=== PATIENT | male | born 1955 | race Caucasian/White ===

== ENCOUNTER 2020-04-05 09:54 | Inpatient (IN) | payer MEDICARE, MEDICAID ==
[2020-04-05] MEDS ORDERED: 50% Dextrose in Water 50 ML Syringe IV PRN ×2 (12:44→12:45)
[2020-04-05] MEDS ORDERED: Glucagon,Human Recombinant 1 MG Vial IM PRN ×2 (12:44→12:45)
[2020-04-05] MEDS ORDERED: 50% Dextrose in Water 50 ML Syringe IVPUSH PRN (12:45)
[2020-04-05] MEDS ORDERED: Acetaminophen/oxyCODONE 325-5 MG Tab PO PRN (12:45)
[2020-04-05] MEDS ORDERED: Ondansetron 4 MG Tab.DIS PO PRN (12:52)
[2020-04-05] MEDS ORDERED: Docusate Sodium 100 MG Cap PO PRN (12:52)
[2020-04-05] MEDS ORDERED: Acetaminophen 325 MG Tab PO PRN (12:52)
--- NOTE | 2020-04-05 13:02 | PCM.HP ---
H&P History of Present Illness - General Date of Service: 04/05/20 Admit Problem/Dx: Admission Diagnosis/Problem Admission Diagnosis/Problem Weakness Source of Information: Patient, Other ([facility] Records from [facility]) - History of Present Illness Initial Comments - Free Text/Narative: 65-year-old gentleman with prolonged hospital course from [facility], prior to acute care admission the patient has been living independently. The patient originally presented with cardiogenic shock, septic shock. the patient had PEA and received cardiac resuscitation. during the hospital course the patient was treated with broad-spectrum antibiotics for sepsis Noted to have acute GI bleed due to rectal ulcers associated with acute blood loss anemia acute renal failure, hyperkalemia, hypernatremia was managed The patient was noted to have severe weakness and dysphasia. transferred to swing bed for further physical and occupational therapy for weakness. He denies chest pain, shortness of breath, nausea or vomiting. - Related Data Allergies/Adverse Reactions: Allergies Allergy/AdvReac Type Severity Reaction Status Date / Time Penicillins Allergy Itching Verified 04/05/20 10:30 Home Medications: Home Meds Aspirin 81 mg PO DAILY 04/05/20 [History] Furosemide [Lasix] 20 mg PO DAILY 04/05/20 [History] Gabapentin [Neurontin] 300 mg PO TID 04/05/20 [History] Insulin Aspart [NovoLOG] 15 units SQ TIDMEALS 04/05/20 [History] Insulin Detemir [Levemir] 60 units SQ BEDTIME 04/05/20 [History] Multivits,Th w-Fe,Other Min [Complete Multivitamin] 1 tab PO DAILY 04/05/20 [History] [place]-3 Fatty Acids/Fish Oil [Fish Oil 1,000 mg Capsule] 1,000 mg pe PO BID 04/05/20 [History] Omeprazole 20 mg PO DAILY 04/05/20 [History] atorvaSTATin [Lipitor] 20 mg PO BEDTIME 04/05/20 [History] lisinopriL [Lisinopril] 5 mg PO DAILY 04/05/20 [History] metFORMIN HCl [Metformin HCl] 1,000 mg PO BIDMEALS 04/05/20 [History] oxyCODONE HCl/Acetaminophen [Oxycodone-Acetaminophen 5-325] 1 tab PO Q6HR PRN 04/05/20 [History] oxyCODONE HCl/Acetaminophen [Oxycodone-Acetaminophen 5-325] 2 tab PO Q6HR PRN 04/05/20 [History] Past Medical History HEENT History: Reports: Cataract Cardiovascular History: Reports: Prior Cardiac Arrest Gastrointestinal History: Reports: GI Bleed Genitourinary History: Reports: Acute Renal Failure Musculoskeletal History: Reports: Arthritis Other Musculoskeletal History: arthritis in hands Neurological History: Reports: Head Trauma, Neuropathy, Diabetic Other Neuro History: Pt fell from cardiac arrest Endocrine/Metabolic History: Reports: Diabetes, Type II Hematologic History: Reports: Blood Transfusion(s) Dermatologic History: Reports: Other (See Below) Other Dermatologic History: discoloration of bilateral lower legs - Infectious Disease History Infectious Disease History: Reports: Chicken Pox, Influenza, Measles, Mumps, Shingles - Past Surgical History HEENT Surgical History: Reports: Cataract Surgery Other HEENT Surgeries/Procedures: Left eye surgery and cataract in right eye Cardiovascular Surgical History: Reports: None GI Surgical History: Reports: Colonoscopy, EGD, Hernia, Abdominal, Hernia Repair/Other Male Surgical History: Reports: None Musculoskeletal Surgical History: Reports: None Social & Family History - Family History Family Medical History: Noncontributory H&P Review of Systems - Review of Systems: Review Of Systems: See Below General: Denies: Fever, Chills Pulmonary: Denies: Shortness of Breath Cardiovascular: Denies: Chest Pain Gastrointestinal: Denies: Abdominal Pain Exam - Exam Exam: See Below - Vital Signs Weight: 288 lb 1.6 oz - Exam General: Alert, Oriented Neck: Supple Lungs: Clear to Auscultation, Normal Respiratory Effort Cardiovascular: Regular Rate, Regular Rhythm GI/Abdominal Exam: Normal Bowel Sounds, Soft, Non-Tender, Other (morbidly obese) Extremities: Pedal Edema (bilateral 1-2+) Neurological: Other (generalized weakness) Neuro Extensive - Mental Status: Alert, Oriented x3 Psychiatric: Alert, Normal Affect, Normal Mood - Patient Data Lab Results Last 24 hrs: Laboratory Results - last 24 hr 04/05/20 Range/Units 11:46 POC Glucose 88 (70-105) mg/dl - Problem List (1) GI bleed SNOMED Code(s): 19559544 ICD Code: K92.2 - GASTROINTESTINAL HEMORRHAGE, UNSPECIFIED Status: Acute Current Visit: Yes (2) Acute blood loss anemia SNOMED Code(s): 264524893 ICD Code: D62 - ACUTE POSTHEMORRHAGIC ANEMIA Status: Acute Current Visit: Yes (3) Weakness SNOMED Code(s): 61829366 ICD Code: R53.1 - WEAKNESS Status: Acute Current Visit: Yes (4) Diabetes SNOMED Code(s): 30197671 ICD Code: E11.9 - TYPE 2 DIABETES MELLITUS WITHOUT COMPLICATIONS Status: Acute Current Visit: Yes (5) Morbid obesity SNOMED Code(s): 921193564 ICD Code: E66.01 - MORBID (SEVERE) OBESITY DUE TO EXCESS CALORIES Status: Acute Current Visit: Yes Problem List Initiated/Reviewed/Updated: Yes Orders Last 24hrs: Active Orders 24 hr Category Date Time Status Patient Status [ADT] Routine ADT 04/05/20 12:53 Ordered Antiembolic Devices [RC] PER UNIT ROUTINE Care 04/05/20 12:55 Ordered Glucose [Blood Glucose Check, Bedside] [RC] QIDACANDBED Care 04/05/20 12:45 Ordered Influenza Vaccine Charge [RC] .DISCHARGE Care 04/05/20 11:23 Active Oxygen Therapy [RC] PRN Care 04/05/20 12:53 Ordered Up With Assistance [RC] ASDIRECTED Care 04/05/20 12:52 Ordered VTE/DVT Education [RC] PER UNIT ROUTINE Care 04/05/20 12:53 Ordered Vital Signs [RC] Q4H Care 04/05/20 12:53 Ordered OT Evaluation and Treatment [CONS] Routine Cons 04/05/20 12:52 Ordered PT Evaluation and Treatment [CONS] Routine Cons 04/05/20 12:52 Ordered 2 Gram Sodium Diet [DIET] Diet 04/05/20 Lunch Active International Dysphagia Diet [DIET] Diet 04/05/20 Lunch Ordered Acetaminophen [TylenoL] Med 04/05/20 12:52 Ordered 650 mg PO Q4H PRN Acetaminophen/oxyCODONE [Percocet 325-5 MG] Med 04/05/20 12:45 Ordered 1 tab PO Q6HR PRN Aspirin Med 04/06/20 09:00 Ordered 81 mg PO DAILY Dextrose 50% in Water Med 04/05/20 12:45 Ordered 25 ml IVPUSH Q1H PRN Dextrose 50% in Water Med 04/05/20 12:44 Ordered 50 ml IV ASDIRECTED PRN Dextrose 50% in Water Med 04/05/20 12:45 Ordered 50 ml IV ASDIRECTED PRN Docusate Sodium [Colace] Med 04/05/20 12:52 Ordered 100 mg PO BID PRN Furosemide [Lasix] Med 04/06/20 09:00 Ordered 20 mg PO DAILY Gabapentin [Neurontin] Med 04/05/20 14:00 Ordered 300 mg PO TID Glucagon,Human Recombinant [GlucaGen] Med 04/05/20 12:44 Ordered 1 mg IM ASDIRECTED PRN Glucagon,Human Recombinant [GlucaGen] Med 04/05/20 12:45 Ordered 1 mg IM ASDIRECTED PRN Insulin Glarg,Human.Rec.Analog [LantUS] Med 04/05/20 21:00 Ordered 60 unit SUBCUT BEDTIME Insulin Lispro [HumaLOG] Med 04/05/20 17:00 Ordered 15 unit SUBCUT TIDMEALS Insulin Lispro [HumaLOG] Med 04/05/20 16:00 Ordered See Protocol SUBCUT ACBED Multivits,Th w-Fe,Other Min [Complete Multivitamin] Med 04/06/20 09:00 Ordered 1 tab PO DAILY Omeprazole Med 04/06/20 09:00 Ordered 20 mg PO DAILY Ondansetron [Zofran ODT] Med 04/05/20 12:52 Ordered 4 mg PO Q4H PRN Pharmacy to Dose - InFluenza V [Pharmacy to Dose - Med 04/06/20 09:00 Active InFluenza Vaccine] 1 each IM DAILY Zolpidem [Ambien] Med 04/05/20 12:52 Ordered 5 mg PO BEDTIME PRN atorvaSTATin [Lipitor] Med 04/05/20 21:00 Ordered 20 mg PO BEDTIME lisinopriL [Prinivil] Med 04/06/20 09:00 Ordered 5 mg PO DAILY metFORMIN HCl [Metformin HCl] Med 04/05/20 18:00 Ordered 1,000 mg PO BIDMEALS Sequential Compression Device [OM.PC] Per Unit Routine Oth 04/05/20 12:55 Ordered Resuscitation Status Routine Resus Stat 04/05/20 12:52 Ordered Medication Orders Acetaminophen (Tylenol) 650 mg PO Q4H PRN PRN Reason: Pain (Mild 1-3)/fever Aspirin (Aspirin) 81 mg PO DAILY [facility] Atorvastatin Calcium (Lipitor) 20 mg PO BEDTIME [facility] Dextrose/Water (Dextrose 50% In Water) 50 ml IV ASDIRECTED PRN PRN Reason: Hypoglycemia Dextrose/Water (Dextrose 50% In Water) 25 ml IVPUSH Q1H PRN PRN Reason: blood sugar <70 Dextrose/Water (Dextrose 50% In Water) 50 ml IV ASDIRECTED PRN PRN Reason: Hypoglycemia Docusate Sodium (Colace) 100 mg PO BID PRN PRN Reason: Constipation Furosemide (Lasix) 20 mg PO DAILY [facility] Gabapentin (Neurontin) 300 mg PO TID [facility] Glucagon (Glucagen) 1 mg IM ASDIRECTED PRN PRN Reason: Hypoglycemia Glucagon (Glucagen) 1 mg IM ASDIRECTED PRN PRN Reason: Hypoglycemia Influenza Virus Vaccine (Pharmacy To Dose - Influenza Vaccine) 1 each IM DAILY [facility] Insulin Glargine (Lantus) 60 unit SUBCUT BEDTIME [facility] Insulin Human Lispro (Humalog) 15 unit SUBCUT TIDMEALS [facility] Insulin Human Lispro (Humalog) 0 unit SUBCUT ACBED [facility]; Protocol Lisinopril (Prinivil) 5 mg PO DAILY [facility] Non-Formulary Medication (Metformin Hcl [Metformin Hcl]) 1,000 mg PO BIDMEALS [facility] Non-Formulary Medication (Multivits,Th W-,Other Min [Complete Multivitamin]) 1 tab PO DAILY [facility] Omeprazole (Omeprazole) 20 mg PO DAILY [facility] Ondansetron HCl (Zofran Odt) 4 mg PO Q4H PRN PRN Reason: nausea, able to take PO Oxycodone/Acetaminophen (Percocet 325-5 Mg) 1 tab PO Q6HR PRN PRN Reason: Pain (moderate 4-6) Zolpidem Tartrate (Ambien) 5 mg PO BEDTIME PRN PRN Reason: Sleep Assessment/Plan Comment:: 65-year-old gentleman with prolonged hospital course from [facility], prior to acute care admission the patient has been living independently. The patient originally presented with cardiogenic shock, septic shock. the patient had PEA and received cardiac resuscitation. during the hospital course the patient was treated with broad-spectrum antibiotics for sepsis Noted to have acute GI bleed due to rectal ulcers associated with acute blood loss anemia acute renal failure, hyperkalemia, hypernatremia was managed The patient was noted to have severe weakness and dysphasia. transferred to swing bed for further physical and occupational therapy for weakness. Weakness due to prolonged hospital course Consult physical and occupational therapy Continue dysphagia diet with thickened liquids and pure consistency septic and cardiogenic shock Requiring cardiac resuscitation Improved Acute blood loss anemia due to GI bleed Follow hemoglobin periodically acute metabolic encephalopathy appears improved High risk for development of hospital related delirium acute respiratory failure Appears resolved We'll monitor Diabetes with morbid obesity treat with Lantus Humalog with meals Supplemental insulin and hypoglycemia treatment as needed Acute renal failure, hyperkalemia, hypernatremia Follow electrolytes and renal function periodically DVT prophylaxis with SCDs Due to the recent GI bleed we'll hold off on chemical prophylaxis
[2020-04-05] MEDS: Gabapentin 300 MG Cap PO SCH ×2 (14:52→21:43)
[2020-04-05] MEDS: metFORMIN 500 MG Tab PO SCH (17:26)
[2020-04-05] MEDS: Insulin Lispro 100 Units/ML 3 ML Vial SUBCUT SCH ×3 (17:27→21:40)
[2020-04-05] MEDS: atorvaSTATin 20 MG Tab PO SCH (21:42)
[2020-04-05] MEDS: Zolpidem 5 MG Tab PO PRN (21:43)
[2020-04-05] MEDS: Insulin Glarg,Human.Rec.Analog 100 Unit/ML SUBCUT SCH (21:44)
[2020-04-06] MEDS: Omeprazole 20 MG Cap.CR PO SCH (05:31)
[2020-04-06] MEDS: Insulin Lispro 100 Units/ML 3 ML Vial SUBCUT SCH ×7 (08:06→21:12)
[2020-04-06] MEDS: metFORMIN 500 MG Tab PO SCH ×2 (08:43→17:39)
[2020-04-06] MEDS: Aspirin 81 MG Tab.Chew PO SCH (08:44)
[2020-04-06] MEDS: Gabapentin 300 MG Cap PO SCH ×3 (08:44→21:18)
[2020-04-06] MEDS: Lisinopril 5 MG Tab PO SCH (08:44)
[2020-04-06] MEDS: Multivitamins, Therapeutic with Minerals Tab PO SCH (08:44)
[2020-04-06] MEDS: Furosemide 20 MG Tab PO SCH (08:45)
[2020-04-06] MEDS: Insulin Glarg,Human.Rec.Analog 100 Unit/ML SUBCUT SCH (21:15)
[2020-04-06] MEDS: atorvaSTATin 20 MG Tab PO SCH (21:18)
[2020-04-06] MEDS: Zolpidem 5 MG Tab PO PRN (21:39)
[2020-04-07] MEDS: Omeprazole 20 MG Cap.CR PO SCH (06:19)
[2020-04-07] MEDS: Gabapentin 300 MG Cap PO SCH ×3 (09:47→21:52)
[2020-04-07] MEDS: Lisinopril 5 MG Tab PO SCH (09:47)
[2020-04-07] MEDS: metFORMIN 500 MG Tab PO SCH ×2 (09:48→17:49)
[2020-04-07] MEDS: Aspirin 81 MG Tab.Chew PO SCH (09:48)
[2020-04-07] MEDS: Multivitamins, Therapeutic with Minerals Tab PO SCH (09:48)
[2020-04-07] MEDS: Furosemide 20 MG Tab PO SCH (09:48)
[2020-04-07] MEDS: Insulin Lispro 100 Units/ML 3 ML Vial SUBCUT SCH ×7 (09:49→21:53)
[2020-04-07] MEDS: atorvaSTATin 20 MG Tab PO SCH (21:53)
[2020-04-07] MEDS: Zolpidem 5 MG Tab PO PRN (21:53)
[2020-04-07] MEDS: Insulin Glarg,Human.Rec.Analog 100 Unit/ML SUBCUT SCH (21:54)
[2020-04-08] MEDS: Omeprazole 20 MG Cap.CR PO SCH (06:27)
[2020-04-08] MEDS: Insulin Lispro 100 Units/ML 3 ML Vial SUBCUT SCH ×4 (07:56→13:04)
[2020-04-08 09:33] LABS: ANION GAP 7.8 mEq/L (7-13); CHLORIDE,CL 101 mmol/L (98-107); SODIUM,NA 138 mmol/L (136-145)
[2020-04-08] MEDS ORDERED: Heparin Sodium 5,000 Units/ML Vial SUBCUT ONE (10:00)
[2020-04-08] MEDS ORDERED: Heparin Sodium/0.45% NaCl 25,000 UNITS/500 ML BAG IV SCH ×2 (10:00→12:00)
[2020-04-08] MEDS ORDERED: Heparin Sodium 5,000 Units/ML Vial IVPUSH ONE (10:00)
--- NOTE | 2020-04-08 11:36 | PCM.PRNOTE ---
- Free Text/Narrative Note: Consulted by Med Surg to insert an IV on a patient who has had multiple attempts by RN. Upon entering room, pt is lying in bed with O2 via SFM with C/O SOB. Using US, a tourniquet was applied to the right forearm. The right hand was cleaned with alcohol. Using a 20 gauge angiocath, an IV was inserted into the right posterior hand on first attempt. Excellent blood return. IV flushes without difficulty. IV was covered with tegaderm and secured with tape. A second IV was requested for PE protocol. Using US, an IV was attempted in Left AC unsuccessfully. IV was too short to reach through the large amount of tissue. A second attempt on Left FA was also unsuccessful. Using US, on third attempt, an 18 gauge angiocath was inserted into left wrist. Flushes extremely well. Covered with tegaderm and tape. RN was notified. Procedure Date & Time: [id number] 04/08/2020
[2020-04-08] MEDS ORDERED: Furosemide 40 MG/4 ML VIAL IVPUSH ONE (12:06)
--- NOTE | 2020-04-08 12:15 | CT ---
PROCEDURE INFORMATION: Exam: CT Chest With Contrast Exam date and time: 04/08/2020 11:16 AM Age: 65 years old Clinical indication: Shortness of breath; Patient HX: Cardiac arrest March 2020, diabetic; Additional info: SOB, hypoxemia, rule out pe TECHNIQUE: Imaging protocol: Computed tomography of the chest with intravenous contrast. Radiation optimization: All CT scans at this facility use at least one of these dose optimization techniques: automated exposure control; mA and/or kV adjustment per patient size (includes targeted exams where dose is matched to clinical indication); or iterative reconstruction. Contrast material: ISOVUE 370; Contrast volume: 98 ml; Contrast route: INTRAVENOUS (IV); Other technique: Multiple the intraluminal filling defects identified in the 1st and 2nd order pulmonary arteries bilaterally. COMPARISON: No relevant prior studies available. FINDINGS: Lungs: Atelectatic changes versus scarring noted in the right upper lobe. Atelectasis versus consolidation in the right lower lobe. Probable atelectatic change in the lingular segment of the left upper lobe. Pleural space: Unremarkable. No pneumothorax. No pleural effusion. Heart: Unremarkable. No cardiomegaly. No pericardial effusion. Aorta: Unremarkable. No aortic aneurysm. Multiple intraluminal filling defects observed in the 1st and 2nd order pulmonary arteries bilaterally. Lymph nodes: Unremarkable. No enlarged lymph nodes. Bones/joints: Unremarkable. No acute fracture. Soft tissues: Unremarkable. IMPRESSION: Findings compatible with acute bilateral pulmonary thromboembolism.
[2020-04-08] MEDS: Multivitamins, Therapeutic with Minerals Tab PO SCH (12:37)
[2020-04-08] MEDS: Aspirin 81 MG Tab.Chew PO SCH (12:37)
[2020-04-08] MEDS: Lisinopril 5 MG Tab PO SCH (12:37)
[2020-04-08] MEDS: Gabapentin 300 MG Cap PO SCH (12:38)
--- NOTE | 2020-04-08 12:40 | PCM.DCSUM1 ---
Discharge Summary - Hospital Course Free Text/Narrative:: 65-year-old gentleman with prolonged hospital course from [facility], prior to acute care admission the patient has been living independently. The patient originally presented with cardiogenic shock, septic shock. the patient had PEA and received cardiac resuscitation. during the hospital course the patient was treated with broad-spectrum antibiotics for sepsis Noted to have acute GI bleed due to rectal ulcers associated with acute blood loss anemia acute renal failure, hyperkalemia, hypernatremia was managed The patient was noted to have severe weakness and dysphasia. [facility] for further physical and occupational therapy for weakness. in the morning of 04/08 was found to have acute hypoxemia remained hemodynamically stable CT showed bilateral PE troponn was elevated EKG showed no st changes Started on Wght based heparin transfer to acute care supplement oxygen as needed Diagnosis: Stroke: No - Discharge Data Discharge Date: 04/08/20 Discharge Disposition: Admitted As Inpatient 65 Condition: Good - Referral to Home Health Primary Care Physician: Rosibel Colon PACKAGING DESIGNER - Discharge Diagnosis/Problem(s) (1) GI bleed SNOMED Code(s): 74306268 ICD Code: K92.2 - GASTROINTESTINAL HEMORRHAGE, UNSPECIFIED Status: Acute Current Visit: Yes (2) Acute blood loss anemia SNOMED Code(s): 546930600 ICD Code: D62 - ACUTE POSTHEMORRHAGIC ANEMIA Status: Acute Current Visit: Yes (3) Weakness SNOMED Code(s): 94879313 ICD Code: R53.1 - WEAKNESS Status: Acute Current Visit: Yes (4) Diabetes SNOMED Code(s): 34212205 ICD Code: E11.9 - TYPE 2 DIABETES MELLITUS WITHOUT COMPLICATIONS Status: Acute Current Visit: Yes (5) Morbid obesity SNOMED Code(s): 662811947 ICD Code: E66.01 - MORBID (SEVERE) OBESITY DUE TO EXCESS CALORIES Status: Acute Current Visit: Yes (6) Acute pulmonary embolism SNOMED Code(s): 438108104 ICD Code: I26.99 - OTHER PULMONARY EMBOLISM WITHOUT ACUTE COR PULMONALE Status: Acute Current Visit: Yes (7) Acute pulmonary embolism SNOMED Code(s): 586886596 ICD Code: I26.99 - OTHER PULMONARY EMBOLISM WITHOUT ACUTE COR PULMONALE S tatus: Acute Current Visit: Yes - Patient Summary/Data Consults: Consultations 04/05/20 12:52 OT Evaluation and Treatment [CONS] Routine PT Evaluation and Treatment [CONS] Routine 04/05/20 17:25 Consult to Speech Language Pathology [[employer]MEMBER Evaluation and Treatment] [CONS] Routine - Discharge Plan Home Medications: Home Meds Aspirin 81 mg PO DAILY 04/05/20 [History] Furosemide [Lasix] 20 mg PO DAILY 04/05/20 [History] Gabapentin [Neurontin] 300 mg PO TID 04/05/20 [History] Insulin Aspart [NovoLOG] 15 units SQ TIDMEALS 04/05/20 [History] Insulin Detemir [Levemir] 60 units SQ BEDTIME 04/05/20 [History] Multivits,Th w-Fe,Other Min [Complete Multivitamin] 1 tab PO DAILY 04/05/20 [History] [place]-3 Fatty Acids/Fish Oil [Fish Oil 1,000 mg Capsule] 1,000 mg pe PO BID 04/05/20 [History] Omeprazole 20 mg PO DAILY 04/05/20 [History] atorvaSTATin [Lipitor] 20 mg PO BEDTIME 04/05/20 [History] lisinopriL [Lisinopril] 5 mg PO DAILY 04/05/20 [History] metFORMIN HCl [Metformin HCl] 1,000 mg PO BIDMEALS 04/05/20 [History] oxyCODONE HCl/Acetaminophen [Oxycodone-Acetaminophen 5-325] 1 tab PO Q6HR PRN 04/05/20 [History] oxyCODONE HCl/Acetaminophen [Oxycodone-Acetaminophen 5-325] 2 tab PO Q6HR PRN 04/05/20 [History] Oxygen Therapy Mode: Simple Mask - Discharge Summary/Plan Comment DC Time >30 min.: No - General Info Date of Service: 04/08/20 Admission Dx/Problem (Free Text: Admission Diagnosis/Problem Admission Diagnosis/Problem Weakness - Patient Data Vitals - Most Recent: Last Vital Signs Temp 98.7 F 04/08/20 08:00 Pulse 112 H 04/08/20 08:00 Resp 20 04/08/20 08:00 BP 111/64 04/08/20 08:00 Pulse Ox 82 L 04/08/20 08:00 Weight - Most Recent: 288 lb 1.6 oz I&O - Last 24 hours: Intake & Output 04/07/20 04/08/20 04/08/20 22:59 06:59 14:59 Intake Total 300 800 Output Total 500 Balance 300 300 Lab Results - Last 24 hrs: Laboratory Results - last 24 hr 04/07/20 04/07/20 04/08/20 Range/Units 17:17 20:50 07:54 WBC (5.0-10.0) 10^3/uL RBC (4.6-6.2) 10^6/uL Hgb (14.0-18.0) g/dL Hct (40.0-54.0) % MCV (80-100) fL MCH (27.0-34.0) pg MCHC (33.0-35.0) g/dL Plt Count (150-450) 10^3/uL Neut % (Auto) (42.2-75.2) % Lymph % (Auto) (20.5-50.1) % [place] % (Auto) (2-8) % Eos % (Auto) (1.0-3.0) % Baso % (Auto) (0.0-1.0) % D-Dimer, Quantitative (0-400) ng/mL Sodium (136-145) mmol/L Potassium (3.5-5.1) mmol/L Chloride (98-107) mmol/L Carbon Dioxide (21-32) mmol/L Anion Gap (7-13) mEq/L BUN (7-18) mg/dL Creatinine (0.70-1.30) mg/dL Est Cr Clr Drug Dosing mL/min Estimated GFR (MDRD) Glucose (74-99) mg/dL POC Glucose 110 H 173 H 77 (70-105) mg/dl Calcium (8.5-10.1) mg/dL Troponin I (0.000-0.056) ng/mL B-Natriuretic Peptide (0-100) pg/ml SARS CoV-2 RNA Rapid HOOD (NEGATIVE) 04/08/20 04/08/20 04/08/20 Range/Units 08:37 08:37 08:37 WBC 6.6 (5.0-10.0) 10^3/uL RBC 3.05 L (4.6-6.2) 10^6/uL Hgb 9.2 L (14.0-18.0) g/dL Hct 29.7 L (40.0-54.0) % MCV 97.4 (80-100) fL MCH 30.2 (27.0-34.0) pg MCHC 31.0 L (33.0-35.0) g/dL Plt Count 215 (150-450) 10^3/uL Neut % (Auto) 65.9 (42.2-75.2) % Lymph % (Auto) 20.1 L (20.5-50.1) % [place] % (Auto) 11.0 H (2-8) % Eos % (Auto) 2.7 (1.0-3.0) % Baso % (Auto) 0.3 (0.0-1.0) % D-Dimer, Quantitative 3340 H (0-400) ng/mL Sodium 138 (136-145) mmol/L Potassium 3.8 (3.5-5.1) mmol/L Chloride 101 (98-107) mmol/L Carbon Dioxide 33 H (21-32) mmol/L Anion Gap 7.8 (7-13) mEq/L BUN 16 (7-18) mg/dL Creatinine 1.08 (0.70-1.30) mg/dL Est Cr Clr Drug Dosing 67.28 mL/min Estimated GFR (MDRD) > 60 Glucose 77 (74-99) mg/dL POC Glucose (70-105) mg/dl Calcium 7.5 L (8.5-10.1) mg/dL Troponin I (0.000-0.056) ng/mL B-Natriuretic Peptide 300 H (0-100) pg/ml SARS CoV-2 RNA Rapid HOOD (NEGATIVE) 04/08/20 04/08/20 04/08/20 Range/Units 08:37 10:20 12:01 WBC (5.0-10.0) 10^3/uL RBC (4.6-6.2) 10^6/uL Hgb (14.0-18.0) g/dL Hct (40.0-54.0) % MCV (80-100) fL MCH (27.0-34.0) pg MCHC (33.0-35.0) g/dL Plt Count (150-450) 10^3/uL Neut % (Auto) (42.2-75.2) % Lymph % (Auto) (20.5-50.1) % [place] % (Auto) (2-8) % Eos % (Auto) (1.0-3.0) % Baso % (Auto) (0.0-1.0) % D-Dimer, Quantitative (0-400) ng/mL Sodium (136-145) mmol/L Potassium (3.5-5.1) mmol/L Chloride (98-107) mmol/L Carbon Dioxide (21-32) mmol/L Anion Gap (7-13) mEq/L BUN (7-18) mg/dL Creatinine (0.70-1.30) mg/dL Est Cr Clr Drug Dosing mL/min Estimated GFR (MDRD) Glucose (74-99) mg/dL POC Glucose 63 L (70-105) mg/dl Calcium (8.5-10.1) mg/dL Troponin I 0.535 H* (0.000-0.056) ng/mL B-Natriuretic Peptide (0-100) pg/ml SARS CoV-2 RNA Rapid HOOD Negative (NEGATIVE) Med Orders - Current: Current Medications Acetaminophen (Tylenol) 650 mg PO Q4H PRN PRN Reason: Pain (Mild 1-3)/fever Aspirin (Aspirin) 81 mg PO DAILY [facility] Last Admin: 04/07/20 09:48 Dose: 81 mg Documented by: Atorvastatin Calcium (Lipitor) 20 mg PO BEDTIME [facility] Last Admin: 04/07/20 21:53 Dose: 20 mg Documented by: Dextrose/Water (Dextrose 50% In Water) 25 ml IVPUSH Q1H PRN PRN Reason: blood sugar <70 Dextrose/Water (Dextrose 50% In Water) 50 ml IV ASDIRECTED PRN PRN Reason: Hypoglycemia Docusate Sodium (Colace) 100 mg PO BID PRN PRN Reason: Constipation Furosemide (Lasix) 20 mg PO DAILY [facility] Last Admin: 04/07/20 09:48 Dose: 20 mg Documented by: Gabapentin (Neurontin) 300 mg PO TID [facility] Last Admin: 04/07/20 21:52 Dose: 300 mg Documented by: Glucagon (Glucagen) 1 mg IM ASDIRECTED PRN PRN Reason: Hypoglycemia Heparin Sodium/Sodium Chloride (Heparin 25,000 Units In 1/2 Ns 500 Ml) 25,000 units in 500 mls @ 25.875 mls/hr IV TITRATE [facility]; Protocol Last Admin: 04/08/20 11:07 Dose: 9.9 units/kg/hr, 25.875 mls/hr Documented by: Influenza Virus Vaccine (Pharmacy To Dose - Influenza Vaccine) 1 each IM DAILY [facility] Last Admin: 04/07/20 11:14 Dose: Not Given Documented by: Insulin Glargine (Lantus) 60 unit SUBCUT BEDTIME [facility] Last Admin: 04/07/20 21:54 Dose: 60 units Documented by: Insulin Human Lispro (Humalog) 15 unit SUBCUT TIDMEALS [facility] Last Admin: 04/07/20 17:50 Dose: Not Given Documented by: Insulin Human Lispro (Humalog) 0 unit SUBCUT QIDACANDBED [facility]; Protocol Last Admin: 04/08/20 07:56 Dose: Not Given Documented by: Lisinopril (Prinivil) 5 mg PO DAILY [facility] Last Admin: 04/07/20 09:47 Dose: 5 mg Documented by: Multivitamins/Minerals (Vitamins And Minerals) 1 tab PO DAILY [facility] Last Admin: 04/07/20 09:48 Dose: 1 tab Documented by: Omeprazole (Omeprazole) 20 mg PO ACBRK [facility] Last Admin: 04/08/20 06:27 Dose: 20 mg Documented by: Ondansetron HCl (Zofran Odt) 4 mg PO Q4H PRN PRN Reason: nausea, able to take PO Oxycodone/Acetaminophen (Percocet 325-5 Mg) 1 tab PO Q6HR PRN PRN Reason: Pain (moderate 4-6) Zolpidem Tartrate (Ambien) 5 mg PO BEDTIME PRN PRN Reason: Sleep Last Admin: 04/07/20 21:53 Dose: 5 mg Documented by: Discontinued Medications Furosemide (Lasix) 40 mg IVPUSH NOW ONE Stop: 04/08/20 12:07 Heparin Sodium (Porcine) (Heparin Sodium) 5,000 units SUBCUT ONETIME ONE Stop: 04/08/20 10:01 Heparin Sodium (Porcine) (Heparin Sodium) 7,500 units IVPUSH .BOLUS ONE Stop: 04/08/20 10:01 Last Admin: 04/08/20 11:05 Dose: 7,500 units Documented by: Heparin Sodium/Sodium Chloride (Heparin 25,000 Units In 1/2 Ns 500 Ml) 25,000 units in 500 mls @ 47.045 mls/hr IV TITRATE [facility]; Protocol Metformin HCl (Glucophage) 1,000 mg PO BIDMEALS [facility] Last Admin: 04/07/20 17:49 Dose: 1,000 mg Documented by: - Exam General: Reports: Alert, Oriented Neck: Reports: Supple Lungs: Reports: Decreased Breath Sounds Cardiovascular: Reports: Regular Rate, Regular Rhythm, Tachycardia GI/Abdominal Exam: Normal Bowel Sounds, Soft, Non-Tender Extremities: Pedal Edema (trace) Skin: Reports: Warm, Dry *Q Meaningful Use (DIS) - VTE *Q VTE Pharmacological Contraindications *Q: Risk of Bleeding
[2020-04-08] MEDS: Furosemide 20 MG Tab PO SCH (13:04)
[2020-04-08] MEDS ORDERED: Iopamidol 755 Mg/ML 100 ML Bottle IVPUSH ONE (13:08)
== END 2020-04-08 13:50 | disposition critical access hospital (66) | DRG 947 ==
LOC: UNDOADMIN 11:25 → DL.MS 11:25 → UNDOADMIN 12:53 → DL.MS 12:53 → UNDODISIN 04-08 13:50
PROVIDERS: ADMIT Internal Medicine; ATTEND Internal Medicine
PROC: 0XH Anatomical Regions, Upper Extremities, Insertion (ICD-10-PCS; principal; 2020-04-08)
DX: R53.1 Weakness (principal); I26.99 Other pulmonary embolism without acute cor pulmonale; G93.41 Metabolic encephalopathy; J96.00 Acute respiratory failure, unspecified whether with hypoxia or hypercapnia; K92.2 Gastrointestinal hemorrhage, unspecified; D62 Acute posthemorrhagic anemia; N17.9 Acute kidney failure, unspecified; E87.0 Hyperosmolality and hypernatremia; Z20.828 Contact with and (suspected) exposure to other viral communicable diseases; R77.8 Other specified abnormalities of plasma proteins; E66.01 Morbid (severe) obesity due to excess calories; E11.42 Type 2 diabetes mellitus with diabetic polyneuropathy; E87.5 Hyperkalemia; Z99.81 Dependence on supplemental oxygen; Z88.0 Allergy status to penicillin; Z79.82 Long term (current) use of aspirin; Z79.4 Long term (current) use of insulin; Z79.899 Other long term (current) drug therapy; Z98.49 Cataract extraction status, unspecified eye
CPT/HCPCS: 36415; 51702; 71260; 80048; 81001; 82962; 83880; 84484; 85025; 85379; 85730; 93005; 97163-GP; 97166-GO; 97530-GO; 97530-GP; A9270-GY; J1644; J1815-GY; J1940; Q9967; U0002

== ENCOUNTER 2020-04-08 13:54 | Inpatient (IN) | payer MEDICARE, MEDICAID ==
[2020-04-08] MEDS ORDERED: 50% Dextrose in Water 50 ML Syringe IV PRN (13:56)
[2020-04-08] MEDS ORDERED: Docusate Sodium 100 MG Cap PO PRN (13:56)
[2020-04-08] MEDS ORDERED: Heparin Sodium 5,000 Units/ML Vial SUBCUT ONE (13:56)
[2020-04-08] MEDS ORDERED: Glucagon,Human Recombinant 1 MG Vial IM PRN ×2 (13:56)
[2020-04-08] MEDS ORDERED: Ondansetron 4 MG Tab.DIS PO PRN (13:56)
[2020-04-08] MEDS ORDERED: 50% Dextrose in Water 50 ML Syringe IVPUSH PRN (13:56)
[2020-04-08] MEDS ORDERED: Acetaminophen/oxyCODONE 325-5 MG Tab PO PRN (13:56)
[2020-04-08] MEDS ORDERED: Acetaminophen 325 MG Tab PO PRN (13:56)
--- NOTE | 2020-04-08 14:07 | PCM.HP ---
H&P History of Present Illness - General Date of Service: 04/08/20 Admit Problem/Dx: Admission Diagnosis/Problem Admission Diagnosis/Problem Weakness Source of Information: Patient - History of Present Illness Initial Comments - Free Text/Narative: 65-year-old gentleman with prolonged hospital course from [facility], prior to acute care admission the patient has been living independently. The patient originally presented with cardiogenic shock, septic shock. the patient had PEA and received cardiac resuscitation. during the hospital course the patient was treated with broad-spectrum antibiotics for sepsis Noted to have acute GI bleed due to rectal ulcers associated with acute blood loss anemia acute renal failure, hyperkalemia, hypernatremia was managed The patient was noted to have severe weakness and dysphasia. transferred to swing bed for further physical and occupational therapy for weakness. On 04/08 am was noted to have low oxygen sats, dx. With PE - Related Data Allergies/Adverse Reactions: Allergies Allergy/AdvReac Type Severity Reaction Status Date / Time Penicillins Allergy Itching Verified 04/05/20 10:30 Home Medications: Home Meds Aspirin 81 mg PO DAILY 04/05/20 [History] Furosemide [Lasix] 20 mg PO DAILY 04/05/20 [History] Gabapentin [Neurontin] 300 mg PO TID 04/05/20 [History] Insulin Aspart [NovoLOG] 15 units SQ TIDMEALS 04/05/20 [History] Insulin Detemir [Levemir] 60 units SQ BEDTIME 04/05/20 [History] Multivits,Th w-Fe,Other Min [Complete Multivitamin] 1 tab PO DAILY 04/05/20 [History] [place]-3 Fatty Acids/Fish Oil [Fish Oil 1,000 mg Capsule] 1,000 mg pe PO BID 04/05/20 [History] Omeprazole 20 mg PO DAILY 04/05/20 [History] atorvaSTATin [Lipitor] 20 mg PO BEDTIME 04/05/20 [History] lisinopriL [Lisinopril] 5 mg PO DAILY 04/05/20 [History] metFORMIN HCl [Metformin HCl] 1,000 mg PO BIDMEALS 04/05/20 [History] oxyCODONE HCl/Acetaminophen [Oxycodone-Acetaminophen 5-325] 1 tab PO Q6HR PRN 04/05/20 [History] oxyCODONE HCl/Acetaminophen [Oxycodone-Acetaminophen 5-325] 2 tab PO Q6HR PRN 04/05/20 [History] Past Medical History HEENT History: Reports: Cataract Cardiovascular History: Reports: Prior Cardiac Arrest Gastrointestinal History: Reports: GI Bleed Genitourinary History: Reports: Acute Renal Failure Musculoskeletal History: Reports: Arthritis Other Musculoskeletal History: arthritis in hands Neurological History: Reports: Head Trauma, Neuropathy, Diabetic Other Neuro History: Pt fell from cardiac arrest Endocrine/Metabolic History: Reports: Diabetes, Type II Hematologic History: Reports: Blood Transfusion(s) Dermatologic History: Reports: Other (See Below) Other Dermatologic History: discoloration of bilateral lower legs - Infectious Disease History Infectious Disease History: Reports: Chicken Pox, Influenza, Measles, Mumps, Shingles - Past Surgical History HEENT Surgical History: Reports: Cataract Surgery Other HEENT Surgeries/Procedures: Left eye surgery and cataract in right eye Cardiovascular Surgical History: Reports: None GI Surgical History: Reports: Colonoscopy, EGD, Hernia, Abdominal, Hernia Repair/Other Male Surgical History: Reports: None Musculoskeletal Surgical History: Reports: None Social & Family History - Family History Family Medical History: Noncontributory - Caffeine Use Caffeine Use: Reports: Coffee H&P Review of Systems - Review of Systems: Review Of Systems: See Below General: Denies: Fever, Chills Pulmonary: Reports: Shortness of Breath Cardiovascular: Reports: Edema. Denies: Chest Pain Psychiatric: Denies: Confusion Exam - Exam Exam: See Below - Vital Signs Vital Signs: Last Vital Signs Temp 98.7 F 04/08/20 13:58 Pulse 98 04/08/20 13:58 Resp 18 04/08/20 13:58 BP 110/62 04/08/20 13:58 Pulse Ox 93 L 04/08/20 13:58 - Exam Quality Assessment: Supplemental Oxygen General: Alert, Oriented Neck: Supple Lungs: Normal Respiratory Effort, Decreased Breath Sounds Cardiovascular: Regular Rate, Regular Rhythm GI/Abdominal Exam: Normal Bowel Sounds, Soft, Non-Tender, Other (obese) Extremities: Pedal Edema (trace ) Neuro Extensive - Mental Status: Alert, Oriented x3, Normal Mood/Affect *Q Meaningful Use (ADM) - VTE *Q VTE Pharmacological Contraindications *Q: Risk of Bleeding - Problem List (1) Acute blood loss anemia SNOMED Code(s): 446656584 ICD Code: D62 - ACUTE POSTHEMORRHAGIC ANEMIA Status: Acute Current Visit: No (2) Acute pulmonary embolism SNOMED Code(s): 997322277 ICD Code: I26.99 - OTHER PULMONARY EMBOLISM WITHOUT ACUTE COR PULMONALE Status: Acute Current Visit: No (3) Diabetes SNOMED Code(s): 44410673 ICD Code: E11.9 - TYPE 2 DIABETES MELLITUS WITHOUT COMPLICATIONS Status: Acute Current Visit: No (4) GI bleed SNOMED Code(s): 16352822 ICD Code: K92.2 - GASTROINTESTINAL HEMORRHAGE, UNSPECIFIED Status: Acute Current Visit: No (5) Morbid obesity SNOMED Code(s): 969801616 ICD Code: E66.01 - MORBID (SEVERE) OBESITY DUE TO EXCESS CALORIES Status: Acute Current Visit: No (6) Weakness SNOMED Code(s): 17216476 ICD Code: R53.1 - WEAKNESS Status: Acute Current Visit: No (7) Type 2 acute myocardial infarction SNOMED Code(s): 92267098 ICD Code: I21.A1 - MYOCARDIAL INFARCTION TYPE 2 Status: Acute Current Visit: Yes Problem List Initiated/Reviewed/Updated: Yes Orders Last 24hrs: Active Orders 24 hr Category Date Time Status Antiembolic Devices [RC] PER UNIT ROUTINE Care 04/08/20 13:56 Active EKG 12 Lead [EKG Documentation Completion] [RC] URGENT Care 04/08/20 13:56 Active Glucose [Blood Glucose Check, Bedside] [RC] QIDACANDBED Care 04/08/20 13:56 Active Influenza Vaccine Charge [RC] .DISCHARGE Care 04/08/20 13:56 Active Influenza Vaccine Charge [RC] .DISCHARGE Care 04/08/20 13:56 Active Insert Urinary Catheter [OM.PC] Q24H Care 04/08/20 13:56 Ordered Oxygen Therapy [RC] PRN Care 04/08/20 13:56 Active Up With Assistance [RC] ASDIRECTED Care 04/08/20 13:56 Active Urinary Catheter Assessment [RC] ASDIRECTED Care 04/08/20 13:56 Active Urinary Catheter Assessment [RC] ASDIRECTED Care 04/08/20 13:56 Active Vital Signs [RC] QSHIFT Care 04/08/20 13:56 Active Wound Care [RC] ASDIRECTED Care 04/08/20 13:56 Active Consult to Speech Language Pathology [IT BUSINESS PROCESS ARCHITECT Evaluation Cons 04/08/20 13:56 Active and Treatment] [CONS] Routine OT Evaluation and Treatment [CONS] Routine Cons 04/08/20 13:56 Active PT Evaluation and Treatment [CONS] Routine Cons 04/08/20 13:56 Active 2 Gram Sodium Diet [DIET] Diet 04/08/20 Lunch Active International Dysphagia Diet [DIET] Diet 04/08/20 Lunch Ordered BASIC METABOLIC PANEL,BMP [CHEM] AM Lab 04/09/20 05:15 Ordered CBC WITH AUTO DIFF [HEME] AM Lab 04/09/20 05:15 Ordered PTT,PARTIAL THROMBOPLSTIN TIME [COAG] Q6H Lab 04/08/20 18:00 Ordered PTT,PARTIAL THROMBOPLSTIN TIME [COAG] Q6H Lab 04/09/20 00:00 Ordered PTT,PARTIAL THROMBOPLSTIN TIME [COAG] Q6H Lab 04/09/20 06:00 Ordered PTT,PARTIAL THROMBOPLSTIN TIME [COAG] Q6H Lab 04/09/20 12:00 Ordered PTT,PARTIAL THROMBOPLSTIN TIME [COAG] Q6H Lab 04/09/20 18:00 Ordered PTT,PARTIAL THROMBOPLSTIN TIME [COAG] Q6H Lab 04/10/20 00:00 Ordered PTT,PARTIAL THROMBOPLSTIN TIME [COAG] Routine Lab 04/08/20 16:00 Ordered Acetaminophen [TylenoL] Med 04/08/20 13:56 Ordered 650 mg PO Q4H PRN Acetaminophen/oxyCODONE [Percocet 325-5 MG] Med 04/08/20 13:56 Ordered 1 tab PO Q6HR PRN Aspirin Med 04/09/20 09:00 Ordered 81 mg PO DAILY Dextrose 50% in Water Med 04/08/20 13:56 Ordered 25 ml IVPUSH Q1H PRN Dextrose 50% in Water Med 04/08/20 13:56 Ordered 50 ml IV ASDIRECTED PRN Dextrose 50% in Water Med 04/08/20 13:56 Ordered 50 ml IV ASDIRECTED PRN Docusate Sodium [Colace] Med 04/08/20 13:56 Ordered 100 mg PO BID PRN Furosemide [Lasix] Med 04/09/20 09:00 Ordered 20 mg PO DAILY Gabapentin [Neurontin] Med 04/08/20 14:00 Ordered 300 mg PO TID Glucagon,Human Recombinant [GlucaGen] Med 04/08/20 13:56 Ordered 1 mg IM ASDIRECTED PRN Glucagon,Human Recombinant [GlucaGen] Med 04/08/20 13:56 Ordered 1 mg IM ASDIRECTED PRN Heparin Sodium Med 04/08/20 13:56 Once 5,000 units SUBCUT ONETIME ONE Heparin Sodium/0.45% NaCl [Heparin 25,000 Units in 1/2 Med 04/08/20 13:56 Ordered NS 500 ML] 25,000 units in 500 ml IV TITRATE Insulin Glarg,Human.Rec.Analog [LantUS] Med 04/08/20 21:00 Ordered 60 unit SUBCUT BEDTIME Insulin Lispro [HumaLOG] Med 04/08/20 17:00 Ordered 15 unit SUBCUT TIDMEALS Insulin Lispro [HumaLOG] Med 04/08/20 17:00 Ordered See Protocol SUBCUT QIDACANDBED Multivitamins/Minerals [Vitamins and Minerals] Med 04/09/20 09:00 Ordered 1 tab PO DAILY Omeprazole Med 04/09/20 06:00 Ordered 20 mg PO ACBRK Ondansetron [Zofran ODT] Med 04/08/20 13:56 Ordered 4 mg PO Q4H PRN Pharmacy to Dose - InFluenza V [Pharmacy to Dose - Med 04/09/20 09:00 Ordered InFluenza Vaccine] 1 each IM DAILY Zolpidem [Ambien] Med 04/08/20 13:56 Ordered 5 mg PO BEDTIME PRN atorvaSTATin [Lipitor] Med 04/08/20 21:00 Ordered 20 mg PO BEDTIME lisinopriL [Prinivil] Med 04/09/20 09:00 Ordered 5 mg PO DAILY Sequential Compression Device [OM.PC] Per Unit Routine Oth 04/08/20 13:56 Ordered VTE Pharmacological Contraindications [AST] Routine Oth 04/08/20 13:56 Ordered Resuscitation Status Routine Resus Stat 04/08/20 13:56 Ordered Medication Orders Acetaminophen (Tylenol) 650 mg PO Q4H PRN PRN Reason: Pain (Mild 1-3)/fever Aspirin (Aspirin) 81 mg PO DAILY [facility] Atorvastatin Calcium (Lipitor) 20 mg PO BEDTIME [facility] Dextrose/Water (Dextrose 50% In Water) 50 ml IV ASDIRECTED PRN PRN Reason: Hypoglycemia Dextrose/Water (Dextrose 50% In Water) 25 ml IVPUSH Q1H PRN PRN Reason: blood sugar <70 Dextrose/Water (Dextrose 50% In Water) 50 ml IV ASDIRECTED PRN PRN Reason: Hypoglycemia Docusate Sodium (Colace) 100 mg PO BID PRN PRN Reason: Constipation Furosemide (Lasix) 20 mg PO DAILY [facility] Gabapentin (Neurontin) 300 mg PO TID [facility] Glucagon (Glucagen) 1 mg IM ASDIRECTED PRN PRN Reason: Hypoglycemia Glucagon (Glucagen) 1 mg IM ASDIRECTED PRN PRN Reason: Hypoglycemia Heparin Sodium (Porcine) (Heparin Sodium) 5,000 units SUBCUT ONETIME ONE Stop: 04/08/20 13:57 Heparin Sodium/Sodium Chloride (Heparin 25,000 Units In 1/2 Ns 500 Ml) 25,000 units in 500 mls @ 25.875 mls/hr IV TITRATE IRAIS; Protocol Influenza Virus Vaccine (Pharmacy To Dose - Influenza Vaccine) 1 each IM DAILY [facility] Insulin Glargine (Lantus) 60 unit SUBCUT BEDTIME [facility] Insulin Human Lispro (Humalog) 15 unit SUBCUT TIDMEALS [facility] Insulin Human Lispro (Humalog) 0 unit SUBCUT QIDACANDBED [facility]; Protocol Lisinopril (Prinivil) 5 mg PO DAILY [facility] Multivitamins/Minerals (Vitamins And Minerals) 1 tab PO DAILY [facility] Omeprazole (Omeprazole) 20 mg PO ACBRK [facility] Ondansetron HCl (Zofran Odt) 4 mg PO Q4H PRN PRN Reason: nausea, able to take PO Oxycodone/Acetaminophen (Percocet 325-5 Mg) 1 tab PO Q6HR PRN PRN Reason: Pain (moderate 4-6) Zolpidem Tartrate (Ambien) 5 mg PO BEDTIME PRN PRN Reason: Sleep Assessment/Plan Comment:: 65-year-old gentleman with prolonged hospital course from [facility], prior to acute care admission the patient has been living independently. The patient originally presented with cardiogenic shock, septic shock. the patient had PEA and received cardiac resuscitation. during the hospital course the patient was treated with broad-spectrum antibiotics for sepsis Noted to have acute GI bleed due to rectal ulcers associated with acute blood loss anemia acute renal failure, hyperkalemia, hypernatremia was managed The patient was noted to have severe weakness and dysphasia. transferred to [facility] bed for further physical and occupational therapy for weakness. On 7 am was noted to have low oxygen sats, dx. With PE and transferred to acute care Acute hypoxemic respiratory failure Will supplement as needed Acute PE Start therapeutic wght based heparin drip Monitor for bleeding with recent lower gi bleed Acute non st CO Likely type II due to PE Cont asa anticoagulation Weakness due to prolonged hospital course Consult physical and occupational therapy Continue dysphagia diet with thickened liquids and pure consistency Acute blood loss anemia due to GI bleed Follow hemoglobin periodically acute metabolic encephalopathy appears improved High risk for development of hospital related delirium Diabetes with morbid obesity treat with Lantus Humalog with meals Supplemental insulin and hypoglycemia treatment as needed Acute renal failure, hyperkalemia, hypernatremia Follow electrolytes and renal function periodically DVT prophylaxis with full dose anticoagulation
[2020-04-08] MEDS: Heparin Sodium/0.45% NaCl 25,000 UNITS/500 ML BAG IV SCH (15:37)
[2020-04-08] MEDS: Gabapentin 300 MG Cap PO SCH ×2 (16:47→20:53)
[2020-04-08] MEDS: Insulin Lispro 100 Units/ML 3 ML Vial SUBCUT SCH ×3 (17:05→20:40)
[2020-04-08] MEDS ORDERED: Heparin Sodium 5,000 Units/ML Vial ONE (19:59)
[2020-04-08] MEDS ORDERED: Heparin Sodium 5,000 Units/ML Vial IV ONE (20:00)
[2020-04-08] MEDS: Zolpidem 5 MG Tab PO PRN (20:53)
[2020-04-08] MEDS: atorvaSTATin 20 MG Tab PO SCH (20:53)
[2020-04-08] MEDS ORDERED: Insulin Glarg,Human.Rec.Analog 100 Unit/ML SUBCUT SCH (21:00)
[2020-04-09] MEDS ORDERED: Heparin Sodium 5,000 Units/ML Vial IVPUSH ONE (01:54)
[2020-04-09] MEDS: Omeprazole 20 MG Cap.CR PO SCH (05:28)
[2020-04-09 07:05] LABS: ANION GAP 10.6 mEq/L (7-13); CHLORIDE,CL 100 mmol/L (98-107); SODIUM,NA 138 mmol/L (136-145)
[2020-04-09] MEDS: Insulin Lispro 100 Units/ML 3 ML Vial SUBCUT SCH ×7 (08:26→21:47)
[2020-04-09] MEDS: Aspirin 81 MG Tab.Chew PO SCH (08:28)
[2020-04-09] MEDS: Multivitamins, Therapeutic with Minerals Tab PO SCH (08:28)
[2020-04-09] MEDS: Furosemide 20 MG Tab PO SCH (08:29)
[2020-04-09] MEDS: Gabapentin 300 MG Cap PO SCH ×3 (08:29→21:46)
[2020-04-09] MEDS ORDERED: Lisinopril 5 MG Tab PO SCH (09:00)
[2020-04-09] MEDS: Heparin Sodium/0.45% NaCl 25,000 UNITS/500 ML BAG IV SCH (10:01)
--- NOTE | 2020-04-09 13:48 | PCM.PN ---
- General Info Date of Service: 04/09/20 Admission Dx/Problem (Free Text): Admission Diagnosis/Problem Admission Diagnosis/Problem pulmonary embolism Subjective Update: remained hemodynamically stable on oxygen supplement denies shortness of breath, no associated chest pain minimally active, not getting out of bed Had loose bowel movements no bloody stool no fever, no chills - Review of Systems General: Reports: Weakness. Denies: Fever Pulmonary: Denies: Shortness of Breath, Wheezing Cardiovascular: Reports: Edema. Denies: Chest Pain Neurological: Denies: Confusion - Patient Data Vitals - Most Recent: Last Vital Signs Temp 98.7 F 04/09/20 13:38 Pulse 94 04/09/20 13:38 Resp 20 04/09/20 13:38 BP 112/68 04/09/20 13:38 Pulse Ox 96 04/09/20 13:38 Weight - Most Recent: 288 lb I&O - Last 24 Hours: Intake & Output 04/08/20 04/09/20 04/09/20 22:59 06:59 14:59 Intake Total 120 Output Total 1700 700 500 Balance -1700 -700 -380 Lab Results Last 24 Hours: Laboratory Results - last 24 hr 04/08/20 04/08/20 04/08/20 Range/Units 16:45 18:10 20:37 WBC (5.0-10.0) 10^3/uL RBC (4.6-6.2) 10^6/uL Hgb (14.0-18.0) g/dL Hct (40.0-54.0) % MCV (80-100) fL MCH (27.0-34.0) pg MCHC (33.0-35.0) g/dL Plt Count (150-450) 10^3/uL Neut % (Auto) (42.2-75.2) % Lymph % (Auto) (20.5-50.1) % [place] % (Auto) (2-8) % Eos % (Auto) (1.0-3.0) % Baso % (Auto) (0.0-1.0) % APTT 38.1 H (22.0-34.0) SEC Sodium (136-145) mmol/L Potassium (3.5-5.1) mmol/L Chloride (98-107) mmol/L Carbon Dioxide (21-32) mmol/L Anion Gap (7-13) mEq/L BUN (7-18) mg/dL Creatinine (0.70-1.30) mg/dL Est Cr Clr Drug Dosing mL/min Estimated GFR (MDRD) Glucose (74-99) mg/dL POC Glucose 82 94 (70-105) mg/dl Calcium (8.5-10.1) mg/dL 04/09/20 04/09/20 04/09/20 Range/Units 01:03 05:45 05:45 WBC 4.0 L (5.0-10.0) 10^3/uL RBC 3.01 L (4.6-6.2) 10^6/uL Hgb 9.0 L (14.0-18.0) g/dL Hct 29.1 L (40.0-54.0) % MCV 96.7 (80-100) fL MCH 29.9 (27.0-34.0) pg MCHC 30.9 L (33.0-35.0) g/dL Plt Count 226 (150-450) 10^3/uL Neut % (Auto) 60.9 (42.2-75.2) % Lymph % (Auto) 24.7 (20.5-50.1) % [place] % (Auto) 7.8 (2-8) % Eos % (Auto) 6.3 H (1.0-3.0) % Baso % (Auto) 0.3 (0.0-1.0) % APTT 44.0 H (22.0-34.0) SEC Sodium 138 (136-145) mmol/L Potassium 3.6 (3.5-5.1) mmol/L Chloride 100 (98-107) mmol/L Carbon Dioxide 31 (21-32) mmol/L Anion Gap 10.6 (7-13) mEq/L BUN 15 (7-18) mg/dL Creatinine 1.00 (0.70-1.30) mg/dL Est Cr Clr Drug Dosing 72.66 mL/min Estimated GFR (MDRD) > 60 Glucose 143 H (74-99) mg/dL POC Glucose (70-105) mg/dl Calcium 7.4 L (8.5-10.1) mg/dL 04/09/20 04/09/20 04/09/20 Range/Units 05:45 08:10 11:26 WBC (5.0-10.0) 10^3/uL RBC (4.6-6.2) 10^6/uL Hgb (14.0-18.0) g/dL Hct (40.0-54.0) % MCV (80-100) fL MCH (27.0-34.0) pg MCHC (33.0-35.0) g/dL Plt Count (150-450) 10^3/uL Neut % (Auto) (42.2-75.2) % Lymph % (Auto) (20.5-50.1) % [place] % (Auto) (2-8) % Eos % (Auto) (1.0-3.0) % Baso % (Auto) (0.0-1.0) % APTT 60.6 H (22.0-34.0) SEC Sodium (136-145) mmol/L Potassium (3.5-5.1) mmol/L Chloride (98-107) mmol/L Carbon Dioxide (21-32) mmol/L Anion Gap (7-13) mEq/L BUN (7-18) mg/dL Creatinine (0.70-1.30) mg/dL Est Cr Clr Drug Dosing mL/min Estimated GFR (MDRD) Glucose (74-99) mg/dL POC Glucose 159 H 148 H (70-105) mg/dl Calcium (8.5-10.1) mg/dL 04/09/20 Range/Units 12:20 WBC (5.0-10.0) 10^3/uL RBC (4.6-6.2) 10^6/uL Hgb (14.0-18.0) g/dL Hct (40.0-54.0) % MCV (80-100) fL MCH (27.0-34.0) pg MCHC (33.0-35.0) g/dL Plt Count (150-450) 10^3/uL Neut % (Auto) (42.2-75.2) % Lymph % (Auto) (20.5-50.1) % [place] % (Auto) (2-8) % Eos % (Auto) (1.0-3.0) % Baso % (Auto) (0.0-1.0) % APTT 61.0 H (22.0-34.0) SEC Sodium (136-145) mmol/L Potassium (3.5-5.1) mmol/L Chloride (98-107) mmol/L Carbon Dioxide (21-32) mmol/L Anion Gap (7-13) mEq/L BUN (7-18) mg/dL Creatinine (0.70-1.30) mg/dL Est Cr Clr Drug Dosing mL/min Estimated GFR (MDRD) Glucose (74-99) mg/dL POC Glucose (70-105) mg/dl Calcium (8.5-10.1) mg/dL Med Orders - Current: Current Medications Acetaminophen (Tylenol) 650 mg PO Q4H PRN PRN Reason: Pain (Mild 1-3)/fever Aspirin (Aspirin) 81 mg PO DAILY [facility] Last Admin: 04/09/20 08:28 Dose: 81 mg Documented by: Atorvastatin Calcium (Lipitor) 20 mg PO BEDTIME [facility] Last Admin: 04/08/20 20:53 Dose: 20 mg Documented by: Dextrose/Water (Dextrose 50% In Water) 25 ml IVPUSH Q1H PRN PRN Reason: blood sugar <70 Dextrose/Water (Dextrose 50% In Water) 50 ml IV ASDIRECTED PRN PRN Reason: Hypoglycemia Docusate Sodium (Colace) 100 mg PO BID PRN PRN Reason: Constipation Enoxaparin Sodium (Lovenox) 100 mg SUBCUT Q12HR [facility] Enoxaparin Sodium (Lovenox) 40 mg SUBCUT Q12HR [facility] Furosemide (Lasix) 20 mg PO DAILY [facility] Last Admin: 04/09/20 08:29 Dose: 20 mg Documented by: Gabapentin (Neurontin) 300 mg PO TID [facility] Last Admin: 04/09/20 08:29 Dose: 300 mg Documented by: Glucagon (Glucagen) 1 mg IM ASDIRECTED PRN PRN Reason: Hypoglycemia Influenza Virus Vaccine (Pharmacy To Dose - Influenza Vaccine) 1 each IM DAILY [facility] Last Admin: 04/09/20 11:30 Dose: Not Given Documented by: Insulin Glargine (Lantus) 30 unit SUBCUT BEDTIME [facility] Insulin Human Lispro (Humalog) 15 unit SUBCUT TIDMEALS [facility] Last Admin: 04/09/20 11:36 Dose: 15 units Documented by: Insulin Human Lispro (Humalog) 0 unit SUBCUT QIDACANDBED [facility]; Protocol Last Admin: 04/09/20 11:31 Dose: Not Given Documented by: Lisinopril (Prinivil) 5 mg PO DAILY [facility] Last Admin: 04/09/20 08:31 Dose: 5 mg Documented by: Multivitamins/Minerals (Vitamins And Minerals) 1 tab PO DAILY [facility] Last Admin: 04/09/20 08:28 Dose: 1 tab Documented by: Omeprazole (Omeprazole) 20 mg PO ACBRK [facility] Last Admin: 04/09/20 05:28 Dose: 20 mg Documented by: Ondansetron HCl (Zofran Odt) 4 mg PO Q4H PRN PRN Reason: nausea, able to take PO Oxycodone/Acetaminophen (Percocet 325-5 Mg) 1 tab PO Q6H PRN PRN Reason: Pain (moderate 4-6) Zolpidem Tartrate (Ambien) 5 mg PO BEDTIME PRN PRN Reason: Sleep Last Admin: 04/08/20 20:53 Dose: 5 mg Documented by: Discontinued Medications Dextrose/Water (Dextrose 50% In Water) 50 ml IV ASDIRECTED PRN PRN Reason: Hypoglycemia Glucagon (Glucagen) 1 mg IM ASDIRECTED PRN PRN Reason: Hypoglycemia Heparin Sodium (Porcine) (Heparin Sodium) 5,000 units SUBCUT ONETIME ONE Stop: 04/08/20 13:57 Last Admin: 04/08/20 23:18 Dose: Not Given Documented by: Heparin Sodium (Porcine) (Heparin Sodium) 1,500 units IV ONETIME ONE Stop: 04/08/20 20:01 Last Admin: 04/08/20 20:01 Dose: 1,500 units Documented by: Heparin Sodium (Porcine) (Heparin Sodium) Confirm Administered Dose 5,000 units .ROUTE .STK-MED ONE Stop: 04/08/20 20:00 Last Admin: 04/08/20 20:40 Dose: Not Given Documented by: Heparin Sodium (Porcine) (Heparin Sodium) 1,500 units IVPUSH .BOLUS ONE Stop: 04/09/20 01:55 Last Admin: 04/09/20 02:08 Dose: 1,500 units Documented by: Heparin Sodium/Sodium Chloride (Heparin 25,000 Units In 1/2 Ns 500 Ml) 25,000 units in 500 mls @ 18.034 mls/hr IV TITRATE IRAIS; Protocol Last Admin: 04/09/20 10:01 Dose: 10.9 units/kg/hr, 28.488 mls/hr Documented by: Insulin Glargine (Lantus) 60 unit SUBCUT BEDTIME [facility] Last Admin: 04/08/20 20:53 Dose: Not Given Documented by: - Exam General: Alert, Oriented Neck: Supple Lungs: Normal Respiratory Effort, Decreased Breath Sounds. No: Rhonchi, Wheezing Cardiovascular: Regular Rate, Regular Rhythm GI/Abdominal Exam: Normal Bowel Sounds, Soft, Non-Tender, Other (morbidly obese) (Male) Exam: Other (Diggs catheter with good urine output) Extremities: Pedal Edema (trace bilateral) Neurological: No New Focal Deficit Psy/Mental Status: Alert, Normal Affect, Normal Mood Sepsis Event Note - Evaluation Sepsis Screening Result: No Definite Risk - Focused Exam Vital Signs: Vital Signs Temp Pulse Resp BP BP Pulse Ox 04/09/20 13:38 98.7 F 94 20 112/68 96 04/09/20 12:00 98.4 F 108 H 20 95/52 L 96 04/09/20 08:31 114/71 04/09/20 08:29 98.5 F 95 20 114/71 96 04/09/20 04:00 97.5 F 91 109/52 L 90 L 04/09/20 02:11 103 H 95 - Problem List & Annotations (1) Acute blood loss anemia SNOMED Code(s): 978440866 Code(s): D62 - ACUTE POSTHEMORRHAGIC ANEMIA Status: Acute Current Visit: No (2) Acute pulmonary embolism SNOMED Code(s): 568317988 Code(s): I26.99 - OTHER PULMONARY EMBOLISM WITHOUT ACUTE COR PULMONALE Status: Acute Current Visit: No (3) Diabetes SNOMED Code(s): 64823205 Code(s): E11.9 - TYPE 2 DIABETES MELLITUS WITHOUT COMPLICATIONS Status: Acute Current Visit: No (4) GI bleed SNOMED Code(s): 13252735 Code(s): K92.2 - GASTROINTESTINAL HEMORRHAGE, UNSPECIFIED Status: Acute Current Visit: No (5) Morbid obesity SNOMED Code(s): 187970074 Code(s): E66.01 - MORBID (SEVERE) OBESITY DUE TO EXCESS CALORIES Status: Acute Current Visit: No (6) Weakness SNOMED Code(s): 49571944 Code(s): R53.1 - WEAKNESS Status: Acute Current Visit: No (7) Type 2 acute myocardial infarction SNOMED Code(s): 71982710 Code(s): I21.A1 - MYOCARDIAL INFARCTION TYPE 2 Status: Acute Current Visit: Yes - Problem List Review Problem List Initiated/Reviewed/Updated: Yes - My Orders Last 24 Hours: My Active Orders 04/08/20 13:56 Antiembolic Devices [RC] PER UNIT ROUTINE Influenza Vaccine Charge [RC] .DISCHARGE Urinary Catheter Assessment [RC] Acetaminophen [TylenoL] 650 mg PO Q4H PRN Acetaminophen/oxyCODONE [Percocet 325-5 MG] 1 tab PO Q6H PRN Dextrose 50% in Water 25 ml IVPUSH Q1H PRN Dextrose 50% in Water 50 ml IV ASDIRECTED PRN Docusate Sodium [Colace] 100 mg PO BID PRN Glucagon,Human Recombinant [GlucaGen] 1 mg IM ASDIRECTED PRN Ondansetron [Zofran ODT] 4 mg PO Q4H PRN Zolpidem [Ambien] 5 mg PO BEDTIME PRN 04/08/20 13:56 Glucose [Blood Glucose Check, Bedside] [RC] QIDACANDBED Insert Urinary Catheter [OM.PC] Q24H Oxygen Therapy [RC] PRN Up With Assistance [RC] ASDIRECTED Wound Care [RC] ASDIRECTED Consult to Speech Language Pathology [W[employer]ING [employer]IVER Evaluation and Treatment] [CONS] Routine OT Evaluation and Treatment [CONS] Routine PT Evaluation and Treatment [CONS] Routine Sequential Compression Device [OM.PC] Per Unit Routine VTE Pharmacological Contraindications [AST] Routine Resuscitation Status Routine 04/08/20 14:00 Gabapentin [Neurontin] 300 mg PO TID 04/08/20 17:00 Insulin Lispro [HumaLOG] 15 unit SUBCUT TIDMEALS Insulin Lispro [HumaLOG] See Protocol SUBCUT QIDACANDBED 04/08/20 21:00 atorvaSTATin [Lipitor] 20 mg PO BEDTIME 04/09/20 06:00 Omeprazole 20 mg PO ACBRK 04/09/20 09:00 Aspirin 81 mg PO DAILY Furosemide [Lasix] 20 mg PO DAILY Multivitamins/Minerals [Vitamins and Minerals] 1 tab PO DAILY Pharmacy to Dose - InFluenza V [Pharmacy to Dose - InFluenza Vaccine] 1 each IM DAILY lisinopriL [Prinivil] 5 mg PO DAILY 04/09/20 21:00 Enoxaparin [Lovenox] 100 mg SUBCUT Q12HR Enoxaparin [Lovenox] 40 mg SUBCUT Q12HR Insulin Glarg,Human.Rec.Analog [LantUS] 30 unit SUBCUT BEDTIME - Plan Plan:: 65-year-old gentleman with prolonged hospital course from [facility], prior to acute care admission the patient has been living independently. The patient originally presented with cardiogenic shock, septic shock. the patient had PEA and received cardiac resuscitation. during the hospital course the patient was treated with broad-spectrum antibiotics for sepsis Noted to have acute GI bleed due to rectal ulcers associated with acute blood loss anemia acute renal failure, hyperkalemia, hypernatremia was managed The patient was noted to have severe weakness and dysphasia. transferred to swing bed for further physical and occupational therapy for weakness. On 11 am was noted to have low oxygen sats, dx. With PE and transferred to acute care Acute hypoxemic respiratory failure Will supplement oxygen as needed Acute PE remained stable with therapeutic wght based heparin drip Will switch to Lovenox twice a day Monitor for bleeding with recent lower gi bleed Acute non st OR Likely type II due to PE Cont asa continue anticoagulation Weakness due to prolonged hospital course Consult physical and occupational therapy Continue dysphagia diet with thickened liquids Acute blood loss anemia due to GI bleed Follow hemoglobin periodically acute metabolic encephalopathy appears improved High risk for development of hospital related delirium Diabetes with morbid obesity had low oral intake decrease Lantus Humalog with meals Supplemental insulin and hypoglycemia treatment as needed Acute renal failure, hyperkalemia, hypernatremia lower extremity edema Continue diuretics Follow electrolytes and renal function periodically DVT prophylaxis with full dose anticoagulation
[2020-04-09] MEDS: Enoxaparin 40 MG/0.4 ML Syringe SUBCUT SCH (21:46)
[2020-04-09] MEDS: atorvaSTATin 20 MG Tab PO SCH (21:46)
[2020-04-09] MEDS: Enoxaparin 100 MG/1 ML Syringe SUBCUT SCH (21:46)
[2020-04-09] MEDS: Insulin Glarg,Human.Rec.Analog 100 Unit/ML SUBCUT SCH (21:47)
[2020-04-09] MEDS: Zolpidem 5 MG Tab PO PRN (21:50)
[2020-04-10] MEDS: Omeprazole 20 MG Cap.CR PO SCH (05:23)
[2020-04-10 07:08] LABS: ANION GAP 8.5 mEq/L (7-13); CHLORIDE,CL 100 mmol/L (98-107); SODIUM,NA 138 mmol/L (136-145)
[2020-04-10] MEDS: Insulin Lispro 100 Units/ML 3 ML Vial SUBCUT SCH ×7 (07:59→21:00)
[2020-04-10] MEDS: Enoxaparin 40 MG/0.4 ML Syringe SUBCUT SCH ×2 (08:45→20:59)
[2020-04-10] MEDS: Enoxaparin 100 MG/1 ML Syringe SUBCUT SCH ×2 (08:45→20:59)
[2020-04-10] MEDS: Aspirin 81 MG Tab.Chew PO SCH (08:46)
[2020-04-10] MEDS: Multivitamins, Therapeutic with Minerals Tab PO SCH (08:46)
[2020-04-10] MEDS: Gabapentin 300 MG Cap PO SCH ×3 (08:46→20:58)
[2020-04-10] MEDS: Furosemide 20 MG Tab PO SCH (08:46)
--- NOTE | 2020-04-10 13:07 | PCM.PN ---
- General Info Date of Service: 04/10/20 Admission Dx/Problem (Free Text): Admission Diagnosis/Problem Admission Diagnosis/Problem pulmonary embolism Subjective Update: remained hemodynamically stable on oxygen supplement denies shortness of breath, no associated chest pain tried to get out of bed with PT was becoming tachycardic, sob quicly overnight has been on Ventimask, tapered to NC this morning no fever, no chills - Review of Systems General: Reports: Weakness. Denies: Fever Cardiovascular: Denies: Chest Pain Gastrointestinal: Denies: Abdominal Pain Neurological: Denies: Confusion - Patient Data Vitals - Most Recent: Last Vital Signs Temp 98.6 F 04/10/20 12:00 Pulse 96 04/10/20 12:00 Resp 20 04/10/20 12:00 BP 112/54 L 04/10/20 12:00 Pulse Ox 96 04/10/20 12:14 Weight - Most Recent: 288 lb I&O - Last 24 Hours: Intake & Output 04/09/20 04/10/20 04/10/20 22:59 06:59 14:59 Intake Total 100 60 200 Output Total 300 600 Balance -200 -540 200 Lab Results Last 24 Hours: Laboratory Results - last 24 hr 04/09/20 04/09/20 04/10/20 Range/Units 16:59 21:09 06:15 WBC 4.7 L (5.0-10.0) 10^3/uL RBC 2.90 L (4.6-6.2) 10^6/uL Hgb 8.6 L (14.0-18.0) g/dL Hct 28.2 L (40.0-54.0) % MCV 97.2 (80-100) fL MCH 29.7 (27.0-34.0) pg MCHC 30.5 L (33.0-35.0) g/dL Plt Count 229 (150-450) 10^3/uL Neut % (Auto) 59.9 (42.2-75.2) % Lymph % (Auto) 25.6 (20.5-50.1) % [place] % (Auto) 7.9 (2-8) % Eos % (Auto) 6.4 H (1.0-3.0) % Baso % (Auto) 0.2 (0.0-1.0) % Sodium (136-145) mmol/L Potassium (3.5-5.1) mmol/L Chloride (98-107) mmol/L Carbon Dioxide (21-32) mmol/L Anion Gap (7-13) mEq/L BUN (7-18) mg/dL Creatinine (0.70-1.30) mg/dL Est Cr Clr Drug Dosing mL/min Estimated GFR (MDRD) Glucose (74-99) mg/dL POC Glucose 69 L 151 H (70-105) mg/dl Calcium (8.5-10.1) mg/dL 04/10/20 04/10/20 04/10/20 Range/Units 06:15 07:50 11:18 WBC (5.0-10.0) 10^3/uL RBC (4.6-6.2) 10^6/uL Hgb (14.0-18.0) g/dL Hct (40.0-54.0) % MCV (80-100) fL MCH (27.0-34.0) pg MCHC (33.0-35.0) g/dL Plt Count (150-450) 10^3/uL Neut % (Auto) (42.2-75.2) % Lymph % (Auto) (20.5-50.1) % [place] % (Auto) (2-8) % Eos % (Auto) (1.0-3.0) % Baso % (Auto) (0.0-1.0) % Sodium 138 (136-145) mmol/L Potassium 3.5 (3.5-5.1) mmol/L Chloride 100 (98-107) mmol/L Carbon Dioxide 33 H (21-32) mmol/L Anion Gap 8.5 (7-13) mEq/L BUN 11 (7-18) mg/dL Creatinine 0.90 (0.70-1.30) mg/dL Est Cr Clr Drug Dosing 80.74 mL/min Estimated GFR (MDRD) > 60 Glucose 136 H (74-99) mg/dL POC Glucose 126 H 146 H (70-105) mg/dl Calcium 7.3 L (8.5-10.1) mg/dL Med Orders - Current: Current Medications Acetaminophen (Tylenol) 650 mg PO Q4H PRN PRN Reason: Pain (Mild 1-3)/fever Aspirin (Aspirin) 81 mg PO DAILY [facility] Last Admin: 04/10/20 08:46 Dose: 81 mg Documented by: Atorvastatin Calcium (Lipitor) 20 mg PO BEDTIME [facility] Last Admin: 04/09/20 21:46 Dose: 20 mg Documented by: Dextrose/Water (Dextrose 50% In Water) 25 ml IVPUSH Q1H PRN PRN Reason: blood sugar <70 Dextrose/Water (Dextrose 50% In Water) 50 ml IV ASDIRECTED PRN PRN Reason: Hypoglycemia Docusate Sodium (Colace) 100 mg PO BID PRN PRN Reason: Constipation Enoxaparin Sodium (Lovenox) 100 mg SUBCUT Q12HR [facility] Last Admin: 04/10/20 08:45 Dose: 100 mg Documented by: Enoxaparin Sodium (Lovenox) 40 mg SUBCUT Q12HR [facility] Last Admin: 04/10/20 08:45 Dose: 40 mg Documented by: Furosemide (Lasix) 20 mg PO DAILY [facility] Last Admin: 04/10/20 08:46 Dose: 20 mg Documented by: Gabapentin (Neurontin) 300 mg PO TID [facility] Last Admin: 04/10/20 08:46 Dose: 300 mg Documented by: Glucagon (Glucagen) 1 mg IM ASDIRECTED PRN PRN Reason: Hypoglycemia Influenza Virus Vaccine (Pharmacy To Dose - Influenza Vaccine) 1 each IM DAILY [facility] Last Admin: 04/10/20 08:46 Dose: Not Given Documented by: Insulin Glargine (Lantus) 30 unit SUBCUT BEDTIME [facility] Last Admin: 04/09/20 21:47 Dose: 30 units Documented by: Insulin Human Lispro (Humalog) 15 unit SUBCUT TIDMEALS [facility] Last Admin: 04/10/20 12:27 Dose: 15 units Documented by: Insulin Human Lispro (Humalog) 0 unit SUBCUT QIDACANDBED [facility]; Protocol Last Admin: 04/10/20 12:21 Dose: Not Given Documented by: Multivitamins/Minerals (Vitamins And Minerals) 1 tab PO DAILY [facility] Last Admin: 04/10/20 08:46 Dose: 1 tab Documented by: Omeprazole (Omeprazole) 20 mg PO ACBRK [facility] Last Admin: 04/10/20 05:23 Dose: 20 mg Documented by: Ondansetron HCl (Zofran Odt) 4 mg PO Q4H PRN PRN Reason: nausea, able to take PO Oxycodone/Acetaminophen (Percocet 325-5 Mg) 1 tab PO Q6H PRN PRN Reason: Pain (moderate 4-6) Zolpidem Tartrate (Ambien) 5 mg PO BEDTIME PRN PRN Reason: Sleep Last Admin: 04/09/20 21:50 Dose: 5 mg Documented by: Discontinued Medications Dextrose/Water (Dextrose 50% In Water) 50 ml IV ASDIRECTED PRN PRN Reason: Hypoglycemia Glucagon (Glucagen) 1 mg IM ASDIRECTED PRN PRN Reason: Hypoglycemia Heparin Sodium (Porcine) (Heparin Sodium) 5,000 units SUBCUT ONETIME ONE Stop: 04/08/20 13:57 Last Admin: 04/08/20 23:18 Dose: Not Given Documented by: Heparin Sodium (Porcine) (Heparin Sodium) 1,500 units IV ONETIME ONE Stop: 04/08/20 20:01 Last Admin: 04/08/20 20:01 Dose: 1,500 units Documented by: Heparin Sodium (Porcine) (Heparin Sodium) Confirm Administered Dose 5,000 units .ROUTE .STK-MED ONE Stop: 04/08/20 20:00 Last Admin: 04/08/20 20:40 Dose: Not Given Documented by: Heparin Sodium (Porcine) (Heparin Sodium) 1,500 units IVPUSH .BOLUS ONE Stop: 04/09/20 01:55 Last Admin: 04/09/20 02:08 Dose: 1,500 units Documented by: Heparin Sodium/Sodium Chloride (Heparin 25,000 Units In 1/2 Ns 500 Ml) 25,000 units in 500 mls @ 18.034 mls/hr IV TITRATE [facility]IS; Protocol Last Admin: 04/09/20 10:01 Dose: 10.9 units/kg/hr, 28.488 mls/hr Documented by: Insulin Glargine (Lantus) 60 unit SUBCUT BEDTIME [facility] Last Admin: 04/08/20 20:53 Dose: Not Given Documented by: Lisinopril (Prinivil) 5 mg PO DAILY [facility] Stop: 04/10/20 00:41 Last Admin: 04/09/20 08:31 Dose: 5 mg Documented by: - Exam Quality Assessment: Supplemental Oxygen General: Alert, Oriented Neck: Supple Lungs: Normal Respiratory Effort, Decreased Breath Sounds Cardiovascular: Regular Rate, Regular Rhythm GI/Abdominal Exam: Normal Bowel Sounds, Soft, Non-Tender Extremities: No Pedal Edema (trace b/l LE) Skin: Warm Neurological: No New Focal Deficit Psy/Mental Status: Alert, Normal Affect, Normal Mood Sepsis Event Note - Evaluation Sepsis Screening Result: No Definite Risk - Focused Exam Vital Signs: Vital Signs Temp Pulse Resp BP Pulse Ox Pulse Ox 04/10/20 12:14 96 04/10/20 12:00 98.6 F 96 20 112/54 L 95 04/10/20 08:24 98.4 F 97 20 113/56 L 95 04/10/20 04:50 96 04/10/20 04:35 98.3 F 99 20 107/59 L 98 - Problem List & Annotations (1) Acute blood loss anemia SNOMED Code(s): 169002598 Code(s): D62 - ACUTE POSTHEMORRHAGIC ANEMIA Status: Acute Current Visit: No (2) Acute pulmonary embolism SNOMED Code(s): 175912749 Code(s): I26.99 - OTHER PULMONARY EMBOLISM WITHOUT ACUTE COR PULMONALE Status: Acute Current Visit: No (3) Diabetes SNOMED Code(s): 33597596 Code(s): E11.9 - TYPE 2 DIABETES MELLITUS WITHOUT COMPLICATIONS Status: Acute Current Visit: No (4) GI bleed SNOMED Code(s): 57887199 Code(s): K92.2 - GASTROINTESTINAL HEMORRHAGE, UNSPECIFIED Status: Acute Current Visit: No (5) Morbid obesity SNOMED Code(s): 462119190 Code(s): E66.01 - MORBID (SEVERE) OBESITY DUE TO EXCESS CALORIES Status: Acute Current Visit: No (6) Weakness SNOMED Code(s): 89914634 Code(s): R53.1 - WEAKNESS Status: Acute Current Visit: No (7) Type 2 acute myocardial infarction SNOMED Code(s): 40989958 Code(s): I21.A1 - MYOCARDIAL INFARCTION TYPE 2 Status: Acute Current Visit: Yes - Problem List Review Problem List Initiated/Reviewed/Updated: Yes - My Orders Last 24 Hours: My Active Orders 04/09/20 21:00 Enoxaparin [Lovenox] 100 mg SUBCUT Q12HR Enoxaparin [Lovenox] 40 mg SUBCUT Q12HR Insulin Glarg,Human.Rec.Analog [LantUS] 30 unit SUBCUT BEDTIME - Plan Plan:: 65-year-old gentleman with prolonged hospital course from [facility], prior to acute care admission the patient has been living independently. The patient originally presented with cardiogenic shock, septic shock. the patient had PEA and received cardiac resuscitation. during the hospital course the patient was treated with broad-spectrum antibiotics for sepsis Noted to have acute GI bleed due to rectal ulcers associated with acute blood loss anemia acute renal failure, hyperkalemia, hypernatremia was managed The patient was noted to have severe weakness and dysphasia. transferred to swing bed for further physical and occupational therapy for weakness. On 11/ am was noted to have low oxygen sats, dx. With PE and transferred to acute care Acute hypoxemic respiratory failure use cpap at night for [place] Will supplement oxygen as needed Acute PE remained stable without bleeding signs cont Lovenox twice a day obtain LE us to eval for dvt Monitor for bleeding with recent lower gi bleed Acute non st [place] Likely type II due to PE Cont asa continue anticoagulation Weakness due to prolonged hospital course continue gentle physical and occupational therapy Continue dysphagia diet with thickened liquids Acute blood loss anemia due to GI bleed Follow hemoglobin periodically acute metabolic encephalopathy appears improved High risk for development of hospital related delirium Diabetes with morbid obesity had low oral intake decreased Lantus Humalog with meals Supplemental insulin and hypoglycemia treatment as needed Acute renal failure, hyperkalemia, hypernatremia lower extremity edema Continue diuretics Follow electrolytes and renal function periodically DVT prophylaxis with full dose anticoagulation
--- NOTE | 2020-04-10 15:16 | US ---
EXAMINATION: Venous Doppler Lwr Ext Bi SEX: Male AGE: 65 years CLINICAL HISTORY: 65-year-old hospitalized, anticoagulated male (recent surgery) with difficulty breathing. CT scan chest 08 April 2020 "compatible with acute bilateral pulmonary thromboembolism". Interpretation: Abnormal. DVT right lower extremity (thigh). 1. Focal decreased blood flow/abnormal (decreased) compression femoral vein, proximally, in the right thigh i.e. DVT. Note: Supervising Architect unable to visualize deep peroneal/posterior tibial veins of the ipsilateral right calf (normal contralateral left lower extremity deep calf veins). 2. No sign of intraluminal echogenic thrombus. Normal compressibility common femoral veins both groins. 3. No intraluminal thrombus; normal blood flow/compressibility deep veins left groin, thigh, knee and calf. 4. No popliteal or Bethea's cyst.
[2020-04-10] MEDS: Zolpidem 5 MG Tab PO PRN (20:58)
[2020-04-10] MEDS: atorvaSTATin 20 MG Tab PO SCH (20:59)
[2020-04-10] MEDS: Insulin Glarg,Human.Rec.Analog 100 Unit/ML SUBCUT SCH (20:59)
[2020-04-11] MEDS: Omeprazole 20 MG Cap.CR PO SCH (05:46)
[2020-04-11] MEDS: Insulin Lispro 100 Units/ML 3 ML Vial SUBCUT SCH ×7 (07:45→21:13)
[2020-04-11 07:58] LABS: ANION GAP 7.7 mEq/L (7-13); CHLORIDE,CL 101 mmol/L (98-107); SODIUM,NA 140 mmol/L (136-145)
[2020-04-11] MEDS: Enoxaparin 40 MG/0.4 ML Syringe SUBCUT SCH ×2 (10:12→21:07)
[2020-04-11] MEDS: Enoxaparin 100 MG/1 ML Syringe SUBCUT SCH ×2 (10:12→21:07)
[2020-04-11] MEDS: Furosemide 20 MG Tab PO SCH (10:13)
[2020-04-11] MEDS: Aspirin 81 MG Tab.Chew PO SCH (10:13)
[2020-04-11] MEDS: Gabapentin 300 MG Cap PO SCH ×3 (10:13→21:07)
[2020-04-11] MEDS: Multivitamins, Therapeutic with Minerals Tab PO SCH (10:13)
--- NOTE | 2020-04-11 11:41 | PCM.PN ---
- General Info Date of Service: 04/11/20 Admission Dx/Problem (Free Text): Admission Diagnosis/Problem Admission Diagnosis/Problem pulmonary embolism Subjective Update: he is actually feeling better, would like to get up and shower remained hemodynamically stable on oxygen supplement denies shortness of breath, no associated chest pain overnight did not tolerate CPAP Quickly desaturating and becomes tachycardic with minimal activity no fever, no chills he does not like the thickened liquids and pured diet. Functional Status: Reports: Tolerating Diet - Review of Systems General: Reports: Weakness. Denies: Fever Pulmonary: Denies: Shortness of Breath Cardiovascular: Denies: Chest Pain, Edema Gastrointestinal: Denies: Abdominal Pain - Patient Data Vitals - Most Recent: Last Vital Signs Temp 98.6 F 04/11/20 08:24 Pulse 98 04/11/20 08:24 Resp 20 04/11/20 08:24 BP 106/77 04/11/20 08:24 Pulse Ox 97 04/11/20 08:24 Weight - Most Recent: 288 lb I&O - Last 24 Hours: Intake & Output 04/10/20 04/11/20 04/11/20 22:59 06:59 14:59 Intake Total 120 225 Output Total 500 Balance -380 225 Lab Results Last 24 Hours: Laboratory Results - last 24 hr 04/10/20 04/10/20 04/11/20 Range/Units 17:00 20:27 07:20 WBC (5.0-10.0) 10^3/uL RBC (4.6-6.2) 10^6/uL Hgb (14.0-18.0) g/dL Hct (40.0-54.0) % MCV (80-100) fL MCH (27.0-34.0) pg MCHC (33.0-35.0) g/dL Plt Count (150-450) 10^3/uL Neut % (Auto) (42.2-75.2) % Lymph % (Auto) (20.5-50.1) % [place] % (Auto) (2-8) % Eos % (Auto) (1.0-3.0) % Baso % (Auto) (0.0-1.0) % Sodium (136-145) mmol/L Potassium (3.5-5.1) mmol/L Chloride (98-107) mmol/L Carbon Dioxide (21-32) mmol/L Anion Gap (7-13) mEq/L BUN (7-18) mg/dL Creatinine (0.70-1.30) mg/dL Est Cr Clr Drug Dosing mL/min Estimated GFR (MDRD) Glucose (74-99) mg/dL POC Glucose 67 L 183 H 144 H (70-105) mg/dl Calcium (8.5-10.1) mg/dL 04/11/20 04/11/20 Range/Units 07:37 07:37 WBC 4.8 L (5.0-10.0) 10^3/uL RBC 3.01 L (4.6-6.2) 10^6/uL Hgb 9.1 L (14.0-18.0) g/dL Hct 29.1 L (40.0-54.0) % MCV 96.7 (80-100) fL MCH 30.2 (27.0-34.0) pg MCHC 31.3 L (33.0-35.0) g/dL Plt Count 229 (150-450) 10^3/uL Neut % (Auto) 53.4 (42.2-75.2) % Lymph % (Auto) 32.1 (20.5-50.1) % [place] % (Auto) 7.4 (2-8) % Eos % (Auto) 6.7 H (1.0-3.0) % Baso % (Auto) 0.4 (0.0-1.0) % Sodium 140 (136-145) mmol/L Potassium 3.7 (3.5-5.1) mmol/L Chloride 101 (98-107) mmol/L Carbon Dioxide 35 H (21-32) mmol/L Anion Gap 7.7 (7-13) mEq/L BUN 6 L (7-18) mg/dL Creatinine 0.87 (0.70-1.30) mg/dL Est Cr Clr Drug Dosing 83.52 mL/min Estimated GFR (MDRD) > 60 Glucose 150 H (74-99) mg/dL POC Glucose (70-105) mg/dl Calcium 7.6 L (8.5-10.1) mg/dL Med Orders - Current: Current Medications Acetaminophen (Tylenol) 650 mg PO Q4H PRN PRN Reason: Pain (Mild 1-3)/fever Aspirin (Aspirin) 81 mg PO DAILY [facility] Last Admin: 04/11/20 10:13 Dose: 81 mg Documented by: Atorvastatin Calcium (Lipitor) 20 mg PO BEDTIME [facility] Last Admin: 04/10/20 20:59 Dose: 20 mg Documented by: Dextrose/Water (Dextrose 50% In Water) 25 ml IVPUSH Q1H PRN PRN Reason: blood sugar <70 Dextrose/Water (Dextrose 50% In Water) 50 ml IV ASDIRECTED PRN PRN Reason: Hypoglycemia Docusate Sodium (Colace) 100 mg PO BID PRN PRN Reason: Constipation Enoxaparin Sodium (Lovenox) 100 mg SUBCUT Q12HR [facility] Last Admin: 04/11/20 10:12 Dose: 100 mg Documented by: Enoxaparin Sodium (Lovenox) 40 mg SUBCUT Q12HR [facility] Last Admin: 04/11/20 10:12 Dose: 40 mg Documented by: Furosemide (Lasix) 20 mg PO DAILY [facility] Last Admin: 04/11/20 10:13 Dose: 20 mg Documented by: Gabapentin (Neurontin) 300 mg PO TID [facility] Last Admin: 04/11/20 10:13 Dose: 300 mg Documented by: Glucagon (Glucagen) 1 mg IM ASDIRECTED PRN PRN Reason: Hypoglycemia Influenza Virus Vaccine (Pharmacy To Dose - Influenza Vaccine) 1 each IM DAILY [facility] Last Admin: 04/11/20 10:13 Dose: Not Given Documented by: Insulin Glargine (Lantus) 30 unit SUBCUT BEDTIME [facility] Last Admin: 04/10/20 20:59 Dose: 30 units Documented by: Insulin Human Lispro (Humalog) 15 unit SUBCUT TIDMEALS [facility] Last Admin: 04/11/20 10:12 Dose: Not Given Documented by: Insulin Human Lispro (Humalog) 0 unit SUBCUT QIDACANDBED [facility]; Protocol Last Admin: 04/11/20 07:45 Dose: Not Given Documented by: Multivitamins/Minerals (Vitamins And Minerals) 1 tab PO DAILY [facility] Last Admin: 04/11/20 10:13 Dose: 1 tab Documented by: Omeprazole (Omeprazole) 20 mg PO ACBRK [facility] Last Admin: 04/11/20 05:46 Dose: 20 mg Documented by: Ondansetron HCl (Zofran Odt) 4 mg PO Q4H PRN PRN Reason: nausea, able to take PO Oxycodone/Acetaminophen (Percocet 325-5 Mg) 1 tab PO Q6H PRN PRN Reason: Pain (moderate 4-6) Zolpidem Tartrate (Ambien) 5 mg PO BEDTIME PRN PRN Reason: Sleep Last Admin: 04/10/20 20:58 Dose: 5 mg Documented by: Discontinued Medications Dextrose/Water (Dextrose 50% In Water) 50 ml IV ASDIRECTED PRN PRN Reason: Hypoglycemia Glucagon (Glucagen) 1 mg IM ASDIRECTED PRN PRN Reason: Hypoglycemia Heparin Sodium (Porcine) (Heparin Sodium) 5,000 units SUBCUT ONETIME ONE Stop: 04/08/20 13:57 Last Admin: 04/08/20 23:18 Dose: Not Given Documented by: Heparin Sodium (Porcine) (Heparin Sodium) 1,500 units IV ONETIME ONE Stop: 04/08/20 20:01 Last Admin: 04/08/20 20:01 Dose: 1,500 units Documented by: Heparin Sodium (Porcine) (Heparin Sodium) Confirm Administered Dose 5,000 units .ROUTE .STK-MED ONE Stop: 04/08/20 20:00 Last Admin: 04/08/20 20:40 Dose: Not Given Documented by: Heparin Sodium (Porcine) (Heparin Sodium) 1,500 units IVPUSH .BOLUS ONE Stop: 04/09/20 01:55 Last Admin: 04/09/20 02:08 Dose: 1,500 units Documented by: Heparin Sodium/Sodium Chloride (Heparin 25,000 Units In 1/2 Ns 500 Ml) 25,000 units in 500 mls @ 18.034 mls/hr IV TITRATE [facility]; Protocol Last Admin: 04/09/20 10:01 Dose: 10.9 units/kg/hr, 28.488 mls/hr Documented by: Insulin Glargine (Lantus) 60 unit SUBCUT BEDTIME [facility] Last Admin: 04/08/20 20:53 Dose: Not Given Documented by: Lisinopril (Prinivil) 5 mg PO DAILY [facility] Stop: 04/10/20 00:41 Last Admin: 04/09/20 08:31 Dose: 5 mg Documented by: - Exam Quality Assessment: Supplemental Oxygen General: Alert, Oriented Neck: Supple Lungs: Normal Respiratory Effort, Decreased Breath Sounds Cardiovascular: Regular Rate, Regular Rhythm Extremities: No Pedal Edema Sepsis Event Note - Evaluation Sepsis Screening Result: No Definite Risk - Focused Exam Vital Signs: Vital Signs Temp Pulse Resp BP Pulse Ox 04/11/20 08:24 98.6 F 98 20 106/77 97 04/11/20 04:00 99 F 96 20 98 04/10/20 23:56 99.5 F 101 H 18 110/71 97 - Problem List & Annotations (1) Acute blood loss anemia SNOMED Code(s): 751748966 Code(s): D62 - ACUTE POSTHEMORRHAGIC ANEMIA Status: Acute Current Visit: No (2) Acute pulmonary embolism SNOMED Code(s): 311328570 Code(s): I26.99 - OTHER PULMONARY EMBOLISM WITHOUT ACUTE COR PULMONALE Status: Acute Current Visit: No (3) Diabetes SNOMED Code(s): 90158102 Code(s): E11.9 - TYPE 2 DIABETES MELLITUS WITHOUT COMPLICATIONS Status: Acute Current Visit: No (4) GI bleed SNOMED Code(s): 91602324 Code(s): K92.2 - GASTROINTESTINAL HEMORRHAGE, UNSPECIFIED Status: Acute Current Visit: No (5) Morbid obesity SNOMED Code(s): 529843548 Code(s): E66.01 - MORBID (SEVERE) OBESITY DUE TO EXCESS CALORIES Status: Acute Current Visit: No (6) Weakness SNOMED Code(s): 82317411 Code(s): R53.1 - WEAKNESS Status: Acute Current Visit: No (7) Type 2 acute myocardial infarction SNOMED Code(s): 42970703 Code(s): I21.A1 - MYOCARDIAL INFARCTION TYPE 2 Status: Acute Current Visit: Yes - Problem List Review Problem List Initiated/Reviewed/Updated: Yes - My Orders Last 24 Hours: My Active Orders 04/10/20 13:17 CPAP [RESPCARE] Routine - Plan Plan:: 65-year-old gentleman with prolonged hospital course from [facility], prior to acute care admission the patient has been living independently. The patient originally presented with cardiogenic shock, septic shock. the patient had PEA and received cardiac resuscitation. during the hospital course the patient was treated with broad-spectrum antibiotics for sepsis Noted to have acute GI bleed due to rectal ulcers associated with acute blood loss anemia acute renal failure, hyperkalemia, hypernatremia was managed The patient was noted to have severe weakness and dysphasia. transferred to swing bed for further physical and occupational therapy for weakness. On 11 am was noted to have low oxygen sats, dx. With PE and transferred to acute care Acute hypoxemic respiratory failure use cpap at night for [place] Will supplement oxygen as needed Acute PE remained stable without bleeding signs r. thigh dvt noted on US cont Lovenox twice a day start coumadin for target inr 2-3 Monitor for bleeding with recent lower gi bleed Acute non st [place] Likely type II due to PE Cont asa continue anticoagulation Weakness due to prolonged hospital course continue gentle physical and occupational therapy Continue dysphagia diet with thickened liquids - as he tolerates - we are unable to repeat video swallow study until he has significantly better exercise tolerance Acute blood loss anemia due to GI bleed Follow hemoglobin periodically acute metabolic encephalopathy appears improved High risk for development of hospital related delirium Diabetes with morbid obesity had low oral intake decreased Lantus Humalog with meals Supplemental insulin and hypoglycemia treatment as needed Acute renal failure, hyperkalemia, hypernatremia lower extremity edema Continue diuretics Follow electrolytes and renal function periodically DVT prophylaxis with full dose anticoagulation
[2020-04-11] MEDS ORDERED: Warfarin 2.5 MG Tab PO ONE (14:00)
[2020-04-11] MEDS: Zolpidem 5 MG Tab PO PRN (21:07)
[2020-04-11] MEDS: atorvaSTATin 20 MG Tab PO SCH (21:07)
[2020-04-11] MEDS: Insulin Glarg,Human.Rec.Analog 100 Unit/ML SUBCUT SCH (21:15)
[2020-04-12] MEDS: Omeprazole 20 MG Cap.CR PO SCH (05:58)
[2020-04-12] MEDS: Insulin Lispro 100 Units/ML 3 ML Vial SUBCUT SCH ×7 (09:16→21:08)
[2020-04-12] MEDS: Enoxaparin 100 MG/1 ML Syringe SUBCUT SCH ×2 (09:17→21:13)
[2020-04-12] MEDS: Enoxaparin 40 MG/0.4 ML Syringe SUBCUT SCH ×2 (09:18→21:13)
[2020-04-12] MEDS: Aspirin 81 MG Tab.Chew PO SCH (09:18)
[2020-04-12] MEDS: Multivitamins, Therapeutic with Minerals Tab PO SCH (09:18)
[2020-04-12] MEDS: Furosemide 20 MG Tab PO SCH (09:18)
[2020-04-12] MEDS: Gabapentin 300 MG Cap PO SCH ×3 (09:18→21:12)
--- NOTE | 2020-04-12 12:37 | PCM.PN ---
- General Info Date of Service: 04/12/20 Admission Dx/Problem (Free Text): Admission Diagnosis/Problem Admission Diagnosis/Problem pulmonary embolism Subjective Update: he is feeling better, has been able to sit at the side of the bed and with quite difficult to get into chair. remained hemodynamically stable on oxygen supplement denies shortness of breath, no associated chest pain still Quickly desaturating and becomes tachycardic with minimal activity no fever, no chills - Review of Systems General: Reports: Weakness. Denies: Fever Pulmonary: Reports: Shortness of Breath Cardiovascular: Denies: Chest Pain Gastrointestinal: Denies: Abdominal Pain Neurological: Denies: Confusion - Patient Data Vitals - Most Recent: Last Vital Signs Temp 98.8 F 04/12/20 08:17 Pulse 101 H 04/12/20 08:17 Resp 20 04/12/20 08:17 BP 121/75 04/12/20 08:17 Pulse Ox 97 04/12/20 08:17 Weight - Most Recent: 288 lb I&O - Last 24 Hours: Intake & Output 04/11/20 04/12/20 04/12/20 22:59 06:59 14:59 Output Total 1000 1150 Balance -1000 -1150 Lab Results Last 24 Hours: Laboratory Results - last 24 hr 04/11/20 04/11/20 04/11/20 Range/Units 07:30 16:56 21:13 PT 13.1 H (9.0-12.0) SEC INR 1.4 H (0.9-1.2) POC Glucose 121 H 138 H (70-105) mg/dl 04/12/20 04/12/20 04/12/20 Range/Units 07:30 08:02 11:29 PT 12.6 H (9.0-12.0) SEC INR 1.3 H (0.9-1.2) POC Glucose 169 H 225 H (70-105) mg/dl Med Orders - Current: Current Medications Acetaminophen (Tylenol) 650 mg PO Q4H PRN PRN Reason: Pain (Mild 1-3)/fever Aspirin (Aspirin) 81 mg PO DAILY [facility] Last Admin: 04/12/20 09:18 Dose: 81 mg Documented by: Atorvastatin Calcium (Lipitor) 20 mg PO BEDTIME [facility] Last Admin: 04/11/20 21:07 Dose: 20 mg Documented by: Dextrose/Water (Dextrose 50% In Water) 25 ml IVPUSH Q1H PRN PRN Reason: blood sugar <70 Dextrose/Water (Dextrose 50% In Water) 50 ml IV ASDIRECTED PRN PRN Reason: Hypoglycemia Docusate Sodium (Colace) 100 mg PO BID PRN PRN Reason: Constipation Enoxaparin Sodium (Lovenox) 100 mg SUBCUT Q12HR [facility] Last Admin: 04/12/20 09:17 Dose: 100 mg Documented by: Enoxaparin Sodium (Lovenox) 40 mg SUBCUT Q12HR [facility] Last Admin: 04/12/20 09:18 Dose: 40 mg Documented by: Furosemide (Lasix) 20 mg PO DAILY [facility] Last Admin: 04/12/20 09:18 Dose: 20 mg Documented by: Gabapentin (Neurontin) 300 mg PO TID [facility] Last Admin: 04/12/20 09:18 Dose: 300 mg Documented by: Glucagon (Glucagen) 1 mg IM ASDIRECTED PRN PRN Reason: Hypoglycemia Influenza Virus Vaccine (Pharmacy To Dose - Influenza Vaccine) 1 each IM DAILY [facility] Last Admin: 04/12/20 09:19 Dose: Not Given Documented by: Insulin Glargine (Lantus) 30 unit SUBCUT BEDTIME [facility] Last Admin: 04/11/20 21:15 Dose: 30 units Documented by: Insulin Human Lispro (Humalog) 15 unit SUBCUT TIDMEALS [facility] Last Admin: 04/12/20 09:16 Dose: 15 units Documented by: Insulin Human Lispro (Humalog) 0 unit SUBCUT QIDACANDBED [facility]; Protocol Last Admin: 04/12/20 09:16 Dose: 1 units Documented by: Multivitamins/Minerals (Vitamins And Minerals) 1 tab PO DAILY [facility] Last Admin: 04/12/20 09:18 Dose: 1 tab Documented by: Omeprazole (Omeprazole) 20 mg PO ACBRK [facility] Last Admin: 04/12/20 05:58 Dose: 20 mg Documented by: Ondansetron HCl (Zofran Odt) 4 mg PO Q4H PRN PRN Reason: nausea, able to take PO Oxycodone/Acetaminophen (Percocet 325-5 Mg) 1 tab PO Q6H PRN PRN Reason: Pain (moderate 4-6) Warfarin Sodium (Pharmacy To Dose - Warfarin) 1 dose .XX ASDIRECTED [facility] Warfarin Sodium (Coumadin) 7.5 mg PO ONETIME ONE Stop: 04/12/20 14:01 Zolpidem Tartrate (Ambien) 5 mg PO BEDTIME PRN PRN Reason: Sleep Last Admin: 04/11/20 21:07 Dose: 5 mg Documented by: Discontinued Medications Dextrose/Water (Dextrose 50% In Water) 50 ml IV ASDIRECTED PRN PRN Reason: Hypoglycemia Glucagon (Glucagen) 1 mg IM ASDIRECTED PRN PRN Reason: Hypoglycemia Heparin Sodium (Porcine) (Heparin Sodium) 5,000 units SUBCUT ONETIME ONE Stop: 04/08/20 13:57 Last Admin: 04/08/20 23:18 Dose: Not Given Documented by: Heparin Sodium (Porcine) (Heparin Sodium) 1,500 units IV ONETIME ONE Stop: 04/08/20 20:01 Last Admin: 04/08/20 20:01 Dose: 1,500 units Documented by: Heparin Sodium (Porcine) (Heparin Sodium) Confirm Administered Dose 5,000 units .ROUTE .STK-MED ONE Stop: 04/08/20 20:00 Last Admin: 04/08/20 20:40 Dose: Not Given Documented by: Heparin Sodium (Porcine) (Heparin Sodium) 1,500 units IVPUSH .BOLUS ONE Stop: 04/09/20 01:55 Last Admin: 04/09/20 02:08 Dose: 1,500 units Documented by: Heparin Sodium/Sodium Chloride (Heparin 25,000 Units In 1/2 Ns 500 Ml) 25,000 units in 500 mls @ 18.034 mls/hr IV TITRATE [facility]; Protocol Last Admin: 04/09/20 10:01 Dose: 10.9 units/kg/hr, 28.488 mls/hr Documented by: Insulin Glargine (Lantus) 60 unit SUBCUT BEDTIME [facility] Last Admin: 04/08/20 20:53 Dose: Not Given Documented by: Lisinopril (Prinivil) 5 mg PO DAILY [facility] Stop: 04/10/20 00:41 Last Admin: 04/09/20 08:31 Dose: 5 mg Documented by: Warfarin Sodium (Coumadin) 7.5 mg PO ONETIME ONE Stop: 04/11/20 14:01 Last Admin: 04/11/20 14:04 Dose: 7.5 mg Documented by: - Exam Quality Assessment: Supplemental Oxygen General: Alert, Oriented Neck: Supple Lungs: Normal Respiratory Effort, Decreased Breath Sounds. No: Wheezing Cardiovascular: Regular Rate, Regular Rhythm GI/Abdominal Exam: Normal Bowel Sounds, Soft, Non-Tender Extremities: No Pedal Edema Sepsis Event Note - Evaluation Sepsis Screening Result: No Definite Risk - Focused Exam Vital Signs: Vital Signs Temp Pulse Resp BP Pulse Ox Pulse Ox 04/12/20 08:17 98.8 F 101 H 20 121/75 97 04/12/20 04:00 98.9 F 103 H 20 105/58 L 98 04/12/20 00:53 98 - Problem List & Annotations (1) Acute blood loss anemia SNOMED Code(s): 331194059 Code(s): D62 - ACUTE POSTHEMORRHAGIC ANEMIA Status: Acute Current Visit: No (2) Acute pulmonary embolism SNOMED Code(s): 923428614 Code(s): I26.99 - OTHER PULMONARY EMBOLISM WITHOUT ACUTE COR PULMONALE Status: Acute Current Visit: No (3) Diabetes SNOMED Code(s): 43598664 Code(s): E11.9 - TYPE 2 DIABETES MELLITUS WITHOUT COMPLICATIONS Status: Acute Current Visit: No (4) GI bleed SNOMED Code(s): 76726415 Code(s): K92.2 - GASTROINTESTINAL HEMORRHAGE, UNSPECIFIED Status: Acute Current Visit: No (5) Morbid obesity SNOMED Code(s): 122424302 Code(s): E66.01 - MORBID (SEVERE) OBESITY DUE TO EXCESS CALORIES Status: Acute Current Visit: No (6) Weakness SNOMED Code(s): 74641106 Code(s): R53.1 - WEAKNESS Status: Acute Current Visit: No (7) Type 2 acute myocardial infarction SNOMED Code(s): 43928595 Code(s): I21.A1 - MYOCARDIAL INFARCTION TYPE 2 Status: Acute Current Visit: Yes - Problem List Review Problem List Initiated/Reviewed/Updated: Yes - My Orders Last 24 Hours: My Active Orders 04/11/20 11:45 Pharmacy to Dose - Warfarin 1 dose .XX ASDIRECTED 04/12/20 14:00 Warfarin [Coumadin] 7.5 mg PO ONETIME ONE 04/13/20 05:15 BASIC METABOLIC PANEL,BMP [CHEM] AM CBC WITH AUTO DIFF [HEME] AM 04/13/20 12:51 INR,PT,PROTHROMBIN TIME [COAG] DAILY 04/14/20 12:51 INR,PT,PROTHROMBIN TIME [COAG] DAILY 04/15/20 12:51 INR,PT,PROTHROMBIN TIME [COAG] DAILY 04/16/20 12:51 INR,PT,PROTHROMBIN TIME [COAG] DAILY 04/17/20 12:51 INR,PT,PROTHROMBIN TIME [COAG] DAILY - Plan Plan:: 65-year-old gentleman with prolonged hospital course from [facility], prior to acute care admission the patient has been living independently. The patient originally presented with cardiogenic shock, septic shock. the patient had PEA and received cardiac resuscitation. during the hospital course the patient was treated with broad-spectrum antibiotics for sepsis Noted to have acute GI bleed due to rectal ulcers associated with acute blood loss anemia acute renal failure, hyperkalemia, hypernatremia was managed The patient was noted to have severe weakness and dysphasia. transferred to swing bed for further physical and occupational therapy for weakness. On 04/08 am was noted to have low oxygen sats, dx. With PE and transferred to acute care Acute hypoxemic respiratory failure Will supplement oxygen as needed did not tolerate CPAP Acute PE remained stable without bleeding signs r. thigh dvt noted on US cont Lovenox twice a day started coumadin for target inr 2-3 Monitor for bleeding with recent lower gi bleed Acute non st [place] Likely type II due to PE Cont asa continue anticoagulation Weakness due to prolonged hospital course continue gentle physical and occupational therapy Continue dysphagia diet with thickened liquids - as he tolerates - we are unable to repeat video swallow study until he has significantly better exercise tolerance Acute blood loss anemia due to GI bleed Follow hemoglobin periodically acute metabolic encephalopathy appears resolved High risk for development of hospital related delirium Diabetes with morbid obesity had low oral intake decreased Lantus Humalog with meals Supplemental insulin and hypoglycemia treatment as needed Acute renal failure, hyperkalemia, hypernatremia lower extremity edema Continue diuretics Follow electrolytes and renal function in AM DVT prophylaxis with full dose anticoagulation
[2020-04-12] MEDS ORDERED: Warfarin 2.5 MG Tab PO ONE (14:00)
[2020-04-12] MEDS: Insulin Glarg,Human.Rec.Analog 100 Unit/ML SUBCUT SCH (21:10)
[2020-04-12] MEDS: atorvaSTATin 20 MG Tab PO SCH (21:12)
[2020-04-13] MEDS: Omeprazole 20 MG Cap.CR PO SCH (05:41)
[2020-04-13 06:53] LABS: ANION GAP 7.2 mEq/L (7-13); CHLORIDE,CL 100 mmol/L (98-107); SODIUM,NA 139 mmol/L (136-145)
[2020-04-13] MEDS: Enoxaparin 100 MG/1 ML Syringe SUBCUT SCH ×2 (09:05→21:39)
[2020-04-13] MEDS: Insulin Lispro 100 Units/ML 3 ML Vial SUBCUT SCH ×7 (09:06→21:36)
[2020-04-13] MEDS: Enoxaparin 40 MG/0.4 ML Syringe SUBCUT SCH ×2 (09:06→21:39)
[2020-04-13] MEDS: Furosemide 20 MG Tab PO SCH (09:07)
[2020-04-13] MEDS: Multivitamins, Therapeutic with Minerals Tab PO SCH (09:07)
[2020-04-13] MEDS: Gabapentin 300 MG Cap PO SCH ×3 (09:07→21:40)
[2020-04-13] MEDS: Aspirin 81 MG Tab.Chew PO SCH (09:08)
--- NOTE | 2020-04-13 11:12 | PCM.PN ---
- General Info Date of Service: 04/13/20 Admission Dx/Problem (Free Text): Admission Diagnosis/Problem Admission Diagnosis/Problem pulmonary embolism Subjective Update: he is feeling stronger has been out of bed to chair remained hemodynamically stable on oxygen supplement denies shortness of breath, no associated chest pain still Quickly desaturating and becomes tachycardic with minimal activity no fever, no chills Functional Status: Reports: Pain Controlled, Tolerating Diet (puree with thinckened) - Review of Systems General: Denies: Fever Pulmonary: Denies: Shortness of Breath Cardiovascular: Reports: Edema. Denies: Chest Pain Neurological: Denies: Confusion - Patient Data Vitals - Most Recent: Last Vital Signs Temp 97.8 F 04/13/20 08:00 Pulse 97 04/13/20 08:00 Resp 16 04/13/20 08:00 BP 104/70 04/13/20 08:00 Pulse Ox 96 04/13/20 08:00 Weight - Most Recent: 288 lb I&O - Last 24 Hours: Intake & Output 04/12/20 04/13/20 04/13/20 22:59 06:59 14:59 Intake Total 100 210 Output Total 850 Balance 100 -640 Lab Results Last 24 Hours: Laboratory Results - last 24 hr 04/12/20 04/12/20 04/12/20 Range/Units 11:29 16:55 20:58 WBC (5.0-10.0) 10^3/uL RBC (4.6-6.2) 10^6/uL Hgb (14.0-18.0) g/dL Hct (40.0-54.0) % MCV (80-100) fL MCH (27.0-34.0) pg MCHC (33.0-35.0) g/dL Plt Count (150-450) 10^3/uL Neut % (Auto) (42.2-75.2) % Lymph % (Auto) (20.5-50.1) % [place] % (Auto) (2-8) % Eos % (Auto) (1.0-3.0) % Baso % (Auto) (0.0-1.0) % PT (9.0-12.0) SEC INR (0.9-1.2) Sodium (136-145) mmol/L Potassium (3.5-5.1) mmol/L Chloride (98-107) mmol/L Carbon Dioxide (21-32) mmol/L Anion Gap (7-13) mEq/L BUN (7-18) mg/dL Creatinine (0.70-1.30) mg/dL Est Cr Clr Drug Dosing mL/min Estimated GFR (MDRD) Glucose (74-99) mg/dL POC Glucose 225 H 61 L 250 H (70-105) mg/dl Calcium (8.5-10.1) mg/dL 04/13/20 04/13/20 04/13/20 Range/Units 06:24 06:24 06:24 WBC 4.9 L (5.0-10.0) 10^3/uL RBC 3.04 L (4.6-6.2) 10^6/uL Hgb 9.1 L (14.0-18.0) g/dL Hct 29.3 L (40.0-54.0) % MCV 96.4 (80-100) fL MCH 29.9 (27.0-34.0) pg MCHC 31.1 L (33.0-35.0) g/dL Plt Count 230 (150-450) 10^3/uL Neut % (Auto) 57.1 (42.2-75.2) % Lymph % (Auto) 30.1 (20.5-50.1) % [place] % (Auto) 7.1 (2-8) % Eos % (Auto) 5.3 H (1.0-3.0) % Baso % (Auto) 0.4 (0.0-1.0) % PT 18.0 H D (9.0-12.0) SEC INR 1.9 H (0.9-1.2) Sodium 139 (136-145) mmol/L Potassium 3.2 L (3.5-5.1) mmol/L Chloride 100 (98-107) mmol/L Carbon Dioxide 35 H (21-32) mmol/L Anion Gap 7.2 (7-13) mEq/L BUN 5 L (7-18) mg/dL Creatinine 0.88 (0.70-1.30) mg/dL Est Cr Clr Drug Dosing 82.57 mL/min Estimated GFR (MDRD) > 60 Glucose 177 H (74-99) mg/dL POC Glucose (70-105) mg/dl Calcium 7.6 L (8.5-10.1) mg/dL 04/13/20 Range/Units 07:34 WBC (5.0-10.0) 10^3/uL RBC (4.6-6.2) 10^6/uL Hgb (14.0-18.0) g/dL Hct (40.0-54.0) % MCV (80-100) fL MCH (27.0-34.0) pg MCHC (33.0-35.0) g/dL Plt Count (150-450) 10^3/uL Neut % (Auto) (42.2-75.2) % Lymph % (Auto) (20.5-50.1) % [place] % (Auto) (2-8) % Eos % (Auto) (1.0-3.0) % Baso % (Auto) (0.0-1.0) % PT (9.0-12.0) SEC INR (0.9-1.2) Sodium (136-145) mmol/L Potassium (3.5-5.1) mmol/L Chloride (98-107) mmol/L Carbon Dioxide (21-32) mmol/L Anion Gap (7-13) mEq/L BUN (7-18) mg/dL Creatinine (0.70-1.30) mg/dL Est Cr Clr Drug Dosing mL/min Estimated GFR (MDRD) Glucose (74-99) mg/dL POC Glucose 181 H (70-105) mg/dl Calcium (8.5-10.1) mg/dL Med Orders - Current: Current Medications Acetaminophen (Tylenol) 650 mg PO Q4H PRN PRN Reason: Pain (Mild 1-3)/fever Aspirin (Aspirin) 81 mg PO DAILY [facility] Last Admin: 04/13/20 09:08 Dose: 81 mg Documented by: Atorvastatin Calcium (Lipitor) 20 mg PO BEDTIME [facility] Last Admin: 04/12/20 21:12 Dose: 20 mg Documented by: Dextrose/Water (Dextrose 50% In Water) 25 ml IVPUSH Q1H PRN PRN Reason: blood sugar <70 Dextrose/Water (Dextrose 50% In Water) 50 ml IV ASDIRECTED PRN PRN Reason: Hypoglycemia Docusate Sodium (Colace) 100 mg PO BID PRN PRN Reason: Constipation Enoxaparin Sodium (Lovenox) 100 mg SUBCUT Q12HR [facility] Last Admin: 04/13/20 09:05 Dose: 100 mg Documented by: Enoxaparin Sodium (Lovenox) 40 mg SUBCUT Q12HR [facility] Last Admin: 04/13/20 09:06 Dose: 40 mg Documented by: Furosemide (Lasix) 20 mg PO DAILY [facility] Last Admin: 04/13/20 09:07 Dose: 20 mg Documented by: Gabapentin (Neurontin) 300 mg PO TID [facility] Last Admin: 04/13/20 09:07 Dose: 300 mg Documented by: Glucagon (Glucagen) 1 mg IM ASDIRECTED PRN PRN Reason: Hypoglycemia Influenza Virus Vaccine (Pharmacy To Dose - Influenza Vaccine) 1 each IM DAILY [facility] Last Admin: 04/12/20 09:19 Dose: Not Given Documented by: Insulin Glargine (Lantus) 30 unit SUBCUT BEDTIME [facility] Last Admin: 04/12/20 21:10 Dose: 30 units Documented by: Insulin Human Lispro (Humalog) 15 unit SUBCUT TIDMEALS [facility] Last Admin: 04/13/20 09:06 Dose: 15 units Documented by: Insulin Human Lispro (Humalog) 0 unit SUBCUT QIDACANDBED [facility]; Protocol Last Admin: 04/13/20 09:07 Dose: 1 units Documented by: Multivitamins/Minerals (Vitamins And Minerals) 1 tab PO DAILY [facility] Last Admin: 04/13/20 09:07 Dose: 1 tab Documented by: Omeprazole (Omeprazole) 20 mg PO ACBRK [facility] Last Admin: 04/13/20 05:41 Dose: 20 mg Documented by: Ondansetron HCl (Zofran Odt) 4 mg PO Q4H PRN PRN Reason: nausea, able to take PO Oxycodone/Acetaminophen (Percocet 325-5 Mg) 1 tab PO Q6H PRN PRN Reason: Pain (moderate 4-6) Potassium Chloride (Klor-Con 10) 20 meq PO BIDMEALS [facility] Stop: 04/13/20 18:01 Warfarin Sodium (Pharmacy To Dose - Warfarin) 1 dose .XX ASDIRECTED [facility] Warfarin Sodium (Coumadin) 5 mg PO ONETIME ONE Stop: 04/13/20 14:01 Zolpidem Tartrate (Ambien) 5 mg PO BEDTIME PRN PRN Reason: Sleep Last Admin: 04/11/20 21:07 Dose: 5 mg Documented by: Discontinued Medications Dextrose/Water (Dextrose 50% In Water) 50 ml IV ASDIRECTED PRN PRN Reason: Hypoglycemia Glucagon (Glucagen) 1 mg IM ASDIRECTED PRN PRN Reason: Hypoglycemia Heparin Sodium (Porcine) (Heparin Sodium) 5,000 units SUBCUT ONETIME ONE Stop: 04/08/20 13:57 Last Admin: 04/08/20 23:18 Dose: Not Given Documented by: Heparin Sodium (Porcine) (Heparin Sodium) 1,500 units IV ONETIME ONE Stop: 04/08/20 20:01 Last Admin: 04/08/20 20:01 Dose: 1,500 units Documented by: Heparin Sodium (Porcine) (Heparin Sodium) Confirm Administered Dose 5,000 units .ROUTE .STK-MED ONE Stop: 04/08/20 20:00 Last Admin: 04/08/20 20:40 Dose: Not Given Documented by: Heparin Sodium (Porcine) (Heparin Sodium) 1,500 units IVPUSH .BOLUS ONE Stop: 04/09/20 01:55 Last Admin: 04/09/20 02:08 Dose: 1,500 units Documented by: Heparin Sodium/Sodium Chloride (Heparin 25,000 Units In 1/2 Ns 500 Ml) 25,000 units in 500 mls @ 18.034 mls/hr IV TITRATE [facility]; Protocol Last Admin: 04/09/20 10:01 Dose: 10.9 units/kg/hr, 28.488 mls/hr Documented by: Insulin Glargine (Lantus) 60 unit SUBCUT BEDTIME [facility] Last Admin: 04/08/20 20:53 Dose: Not Given Documented by: Lisinopril (Prinivil) 5 mg PO DAILY [facility] Stop: 04/10/20 00:41 Last Admin: 04/09/20 08:31 Dose: 5 mg Documented by: Warfarin Sodium (Coumadin) 7.5 mg PO ONETIME ONE Stop: 04/11/20 14:01 Last Admin: 04/11/20 14:04 Dose: 7.5 mg Documented by: Warfarin Sodium (Coumadin) 7.5 mg PO ONETIME ONE Stop: 04/12/20 14:01 Last Admin: 11/11/20 13:35 Dose: 7.5 mg Documented by: - Exam Quality Assessment: Supplemental Oxygen General: Alert, Oriented Neck: Supple Lungs: Clear to Auscultation, Normal Respiratory Effort. No: Rhonchi Cardiovascular: Regular Rate, Regular Rhythm GI/Abdominal Exam: Normal Bowel Sounds, Soft, Non-Tender, Other (morbidly obese) Extremities: Pedal Edema (trace b/l) Skin: Warm, Dry Sepsis Event Note - Evaluation Sepsis Screening Result: No Definite Risk - Focused Exam Vital Signs: Vital Signs Temp Pulse Resp BP Pulse Ox 04/13/20 08:00 97.8 F 97 16 104/70 96 - Problem List & Annotations (1) Acute blood loss anemia SNOMED Code(s): 975601613 Code(s): D62 - ACUTE POSTHEMORRHAGIC ANEMIA Status: Acute Current Visit: No (2) Acute pulmonary embolism SNOMED Code(s): 558994876 Code(s): I26.99 - OTHER PULMONARY EMBOLISM WITHOUT ACUTE COR PULMONALE Status: Acute Current Visit: No (3) Diabetes SNOMED Code(s): 88983391 Code(s): E11.9 - TYPE 2 DIABETES MELLITUS WITHOUT COMPLICATIONS Status: Acute Current Visit: No (4) GI bleed SNOMED Code(s): 35782351 Code(s): K92.2 - GASTROINTESTINAL HEMORRHAGE, UNSPECIFIED Status: Acute Current Visit: No (5) Morbid obesity SNOMED Code(s): 939729339 Code(s): E66.01 - MORBID (SEVERE) OBESITY DUE TO EXCESS CALORIES Status: Acute Current Visit: No (6) Weakness SNOMED Code(s): 03920742 Code(s): R53.1 - WEAKNESS Status: Acute Current Visit: No (7) Type 2 acute myocardial infarction SNOMED Code(s): 56632425 Code(s): I21.A1 - MYOCARDIAL INFARCTION TYPE 2 Status: Acute Current Visit: Yes - Problem List Review Problem List Initiated/Reviewed/Updated: No - My Orders Last 24 Hours: My Active Orders 04/13/20 09:45 Potassium Chloride [Klor-Con 10] 20 meq PO BIDMEALS 04/13/20 14:00 Warfarin [Coumadin] 5 mg PO ONETIME ONE 04/14/20 05:15 BASIC METABOLIC PANEL,BMP [CHEM] AM CBC WITH AUTO DIFF [HEME] AM 04/14/20 12:51 INR,PT,PROTHROMBIN TIME [COAG] DAILY 04/15/20 12:51 INR,PT,PROTHROMBIN TIME [COAG] DAILY 04/16/20 12:51 INR,PT,PROTHROMBIN TIME [COAG] DAILY 04/17/20 12:51 INR,PT,PROTHROMBIN TIME [COAG] DAILY - Plan Plan:: 65-year-old gentleman with prolonged hospital course from [facility], prior to acute care admission the patient has been living independently. The patient originally presented with cardiogenic shock, septic shock. the patient had PEA and received cardiac resuscitation. during the hospital course the patient was treated with broad-spectrum antibiotics for sepsis Noted to have acute GI bleed due to rectal ulcers associated with acute blood loss anemia acute renal failure, hyperkalemia, hypernatremia was managed The patient was noted to have severe weakness and dysphasia. transferred to swing bed for further physical and occupational therapy for weakness. On 04/08 am was noted to have low oxygen sats, dx. With PE and transferred to acute care Acute hypoxemic respiratory failure Will supplement oxygen as needed - using high flow at night, NC during the day did not tolerate CPAP Acute PE remained stable without bleeding signs R. thigh dvt noted on US cont Lovenox twice a day started coumadin for target inr 2-3 inr is close to therapeutic Monitor for bleeding with recent lower gi bleed Acute non st CT Likely type II due to PE Cont asa continue anticoagulation Weakness due to prolonged hospital course continue gentle physical and occupational therapy Continue dysphagia diet with thickened liquids - as he tolerates - we are unable to repeat video swallow study until he has significantly better exercise tolerance Acute blood loss anemia due to GI bleed Follow hemoglobin periodically acute metabolic encephalopathy appears resolved High risk for development of hospital related delirium Diabetes with morbid obesity had low oral intake continue Lantus Humalog with meals Supplemental insulin and hypoglycemia treatment as needed Acute renal failure, hyperkalemia, hypernatremia lower extremity edema Continue diuretics now hypokalemia - will supplement Follow electrolytes and renal function in AM DVT prophylaxis with full dose anticoagulation
[2020-04-13] MEDS: Potassium Chloride 10 MEQ Tab.ER PO SCH ×2 (12:46→17:35)
[2020-04-13] MEDS ORDERED: Warfarin 5 MG Tab PO ONE (14:00)
[2020-04-13] MEDS: Insulin Glarg,Human.Rec.Analog 100 Unit/ML SUBCUT SCH (21:38)
[2020-04-13] MEDS: atorvaSTATin 20 MG Tab PO SCH (21:39)
[2020-04-14] MEDS: Omeprazole 20 MG Cap.CR PO SCH (05:43)
[2020-04-14 07:10] LABS: ANION GAP 6.3 mEq/L (7-13); CHLORIDE,CL 103 mmol/L (98-107); SODIUM,NA 142 mmol/L (136-145)
--- NOTE | 2020-04-14 07:25 | PCM.PN ---
- General Info Date of Service: 04/14/20 Admission Dx/Problem (Free Text): Admission Diagnosis/Problem Admission Diagnosis/Problem pulmonary embolism Subjective Update: he is feeling stronger has been out of bed to chair remained hemodynamically stable on oxygen supplement - need is decreasing denies shortness of breath, no associated chest pain no fever, no chills - Review of Systems General: Reports: Weakness. Denies: Fever Pulmonary: Denies: Shortness of Breath Cardiovascular: Denies: Chest Pain, Edema Gastrointestinal: Denies: Abdominal Pain Genitourinary: Denies: Dysuria - Patient Data Vitals - Most Recent: Last Vital Signs Temp 97.8 F 04/13/20 20:00 Pulse 101 H 04/13/20 20:00 Resp 16 04/13/20 20:00 BP 119/64 04/13/20 20:00 Pulse Ox 100 04/13/20 20:00 Weight - Most Recent: 288 lb I&O - Last 24 Hours: Intake & Output 04/13/20 04/14/20 04/14/20 22:59 06:59 14:59 Intake Total 350 330 Output Total 1000 650 Balance -650 -320 Lab Results Last 24 Hours: Laboratory Results - last 24 hr 04/13/20 04/13/20 04/13/20 Range/Units 06:24 06:24 07:34 WBC 4.9 L (5.0-10.0) 10^3/uL RBC 3.04 L (4.6-6.2) 10^6/uL Hgb 9.1 L (14.0-18.0) g/dL Hct 29.3 L (40.0-54.0) % MCV 96.4 (80-100) fL MCH 29.9 (27.0-34.0) pg MCHC 31.1 L (33.0-35.0) g/dL Plt Count 230 (150-450) 10^3/uL Neut % (Auto) 57.1 (42.2-75.2) % Lymph % (Auto) 30.1 (20.5-50.1) % [place] % (Auto) 7.1 (2-8) % Eos % (Auto) 5.3 H (1.0-3.0) % Baso % (Auto) 0.4 (0.0-1.0) % PT 18.0 H D (9.0-12.0) SEC INR 1.9 H (0.9-1.2) Sodium (136-145) mmol/L Potassium (3.5-5.1) mmol/L Chloride (98-107) mmol/L Carbon Dioxide (21-32) mmol/L Anion Gap (7-13) mEq/L BUN (7-18) mg/dL Creatinine (0.70-1.30) mg/dL Est Cr Clr Drug Dosing mL/min Estimated GFR (MDRD) Glucose (74-99) mg/dL POC Glucose 181 H (70-105) mg/dl Calcium (8.5-10.1) mg/dL 04/13/20 04/13/20 04/13/20 Range/Units 11:39 16:12 20:48 WBC (5.0-10.0) 10^3/uL RBC (4.6-6.2) 10^6/uL Hgb (14.0-18.0) g/dL Hct (40.0-54.0) % MCV (80-100) fL MCH (27.0-34.0) pg MCHC (33.0-35.0) g/dL Plt Count (150-450) 10^3/uL Neut % (Auto) (42.2-75.2) % Lymph % (Auto) (20.5-50.1) % [place] % (Auto) (2-8) % Eos % (Auto) (1.0-3.0) % Baso % (Auto) (0.0-1.0) % PT (9.0-12.0) SEC INR (0.9-1.2) Sodium (136-145) mmol/L Potassium (3.5-5.1) mmol/L Chloride (98-107) mmol/L Carbon Dioxide (21-32) mmol/L Anion Gap (7-13) mEq/L BUN (7-18) mg/dL Creatinine (0.70-1.30) mg/dL Est Cr Clr Drug Dosing mL/min Estimated GFR (MDRD) Glucose (74-99) mg/dL POC Glucose 232 H 153 H 110 H (70-105) mg/dl Calcium (8.5-10.1) mg/dL 04/14/20 04/14/20 Range/Units 06:10 06:10 WBC 5.0 (5.0-10.0) 10^3/uL RBC 3.20 L (4.6-6.2) 10^6/uL Hgb 9.5 L (14.0-18.0) g/dL Hct 31.2 L (40.0-54.0) % MCV 97.5 (80-100) fL MCH 29.7 (27.0-34.0) pg MCHC 30.4 L (33.0-35.0) g/dL Plt Count 244 (150-450) 10^3/uL Neut % (Auto) 50.5 (42.2-75.2) % Lymph % (Auto) 35.7 (20.5-50.1) % [place] % (Auto) 8.2 H (2-8) % Eos % (Auto) 5.4 H (1.0-3.0) % Baso % (Auto) 0.2 (0.0-1.0) % PT (9.0-12.0) SEC INR (0.9-1.2) Sodium 142 (136-145) mmol/L Potassium 4.3 (3.5-5.1) mmol/L Chloride 103 (98-107) mmol/L Carbon Dioxide 37 H (21-32) mmol/L Anion Gap 6.3 L (7-13) mEq/L BUN 6 L (7-18) mg/dL Creatinine 0.96 (0.70-1.30) mg/dL Est Cr Clr Drug Dosing 75.69 mL/min Estimated GFR (MDRD) > 60 Glucose 136 H (74-99) mg/dL POC Glucose (70-105) mg/dl Calcium 8.0 L (8.5-10.1) mg/dL Med Orders - Current: Current Medications Acetaminophen (Tylenol) 650 mg PO Q4H PRN PRN Reason: Pain (Mild 1-3)/fever Aspirin (Aspirin) 81 mg PO DAILY [facility] Last Admin: 04/13/20 09:08 Dose: 81 mg Documented by: Atorvastatin Calcium (Lipitor) 20 mg PO BEDTIME [facility] Last Admin: 04/13/20 21:39 Dose: 20 mg Documented by: Dextrose/Water (Dextrose 50% In Water) 25 ml IVPUSH Q1H PRN PRN Reason: blood sugar <70 Dextrose/Water (Dextrose 50% In Water) 50 ml IV ASDIRECTED PRN PRN Reason: Hypoglycemia Docusate Sodium (Colace) 100 mg PO BID PRN PRN Reason: Constipation Last Admin: 04/13/20 17:35 Dose: 100 mg Documented by: Enoxaparin Sodium (Lovenox) 100 mg SUBCUT Q12HR [facility] Last Admin: 04/13/20 21:39 Dose: 100 mg Documented by: Enoxaparin Sodium (Lovenox) 40 mg SUBCUT Q12HR [facility] Last Admin: 04/13/20 21:39 Dose: 40 mg Documented by: Furosemide (Lasix) 20 mg PO DAILY [facility] Last Admin: 04/13/20 09:07 Dose: 20 mg Documented by: Gabapentin (Neurontin) 300 mg PO TID [facility] Last Admin: 04/13/20 21:40 Dose: 300 mg Documented by: Glucagon (Glucagen) 1 mg IM ASDIRECTED PRN PRN Reason: Hypoglycemia Influenza Virus Vaccine (Pharmacy To Dose - Influenza Vaccine) 1 each IM DAILY [facility] Last Admin: 04/13/20 14:11 Dose: Not Given Documented by: Insulin Glargine (Lantus) 30 unit SUBCUT BEDTIME [facility] Last Admin: 04/13/20 21:38 Dose: 30 units Documented by: Insulin Human Lispro (Humalog) 15 unit SUBCUT TIDMEALS [facility] Last Admin: 04/13/20 17:36 Dose: 15 units Documented by: Insulin Human Lispro (Humalog) 0 unit SUBCUT QIDACANDBED [facility]; Protocol Last Admin: 04/13/20 21:36 Dose: Not Given Documented by: Multivitamins/Minerals (Vitamins And Minerals) 1 tab PO DAILY [facility] Last Admin: 04/13/20 09:07 Dose: 1 tab Documented by: Omeprazole (Omeprazole) 20 mg PO ACBRK [facility] Last Admin: 04/14/20 05:43 Dose: 20 mg Documented by: Ondansetron HCl (Zofran Odt) 4 mg PO Q4H PRN PRN Reason: nausea, able to take PO Oxycodone/Acetaminophen (Percocet 325-5 Mg) 1 tab PO Q6H PRN PRN Reason: Pain (moderate 4-6) Warfarin Sodium (Pharmacy To Dose - Warfarin) 1 dose .XX ASDIRECTED [facility] Zolpidem Tartrate (Ambien) 5 mg PO BEDTIME PRN PRN Reason: Sleep Last Admin: 04/11/20 21:07 Dose: 5 mg Documented by: Discontinued Medications Dextrose/Water (Dextrose 50% In Water) 50 ml IV ASDIRECTED PRN PRN Reason: Hypoglycemia Glucagon (Glucagen) 1 mg IM ASDIRECTED PRN PRN Reason: Hypoglycemia Heparin Sodium (Porcine) (Heparin Sodium) 5,000 units SUBCUT ONETIME ONE Stop: 04/08/20 13:57 Last Admin: 04/08/20 23:18 Dose: Not Given Documented by: Heparin Sodium (Porcine) (Heparin Sodium) 1,500 units IV ONETIME ONE Stop: 04/08/20 20:01 Last Admin: 04/08/20 20:01 Dose: 1,500 units Documented by: Heparin Sodium (Porcine) (Heparin Sodium) Confirm Administered Dose 5,000 units .ROUTE .STK-MED ONE Stop: 04/08/20 20:00 Last Admin: 04/08/20 20:40 Dose: Not Given Documented by: Heparin Sodium (Porcine) (Heparin Sodium) 1,500 units IVPUSH .BOLUS ONE Stop: 04/09/20 01:55 Last Admin: 04/09/20 02:08 Dose: 1,500 units Documented by: Heparin Sodium/Sodium Chloride (Heparin 25,000 Units In 1/2 Ns 500 Ml) 25,000 units in 500 mls @ 18.034 mls/hr IV TITRATE [facility]; Protocol Last Admin: 04/09/20 10:01 Dose: 10.9 units/kg/hr, 28.488 mls/hr Documented by: Insulin Glargine (Lantus) 60 unit SUBCUT BEDTIME [facility] Last Admin: 04/08/20 20:53 Dose: Not Given Documented by: Lisinopril (Prinivil) 5 mg PO DAILY [facility] Stop: 04/10/20 00:41 Last Admin: 04/09/20 08:31 Dose: 5 mg Documented by: Potassium Chloride (Klor-Con 10) 20 meq PO BIDMEALS [facility] Stop: 04/13/20 18:01 Last Admin: 04/13/20 17:35 Dose: 20 meq Documented by: Warfarin Sodium (Coumadin) 7.5 mg PO ONETIME ONE Stop: 04/11/20 14:01 Last Admin: 04/11/20 14:04 Dose: 7.5 mg Documented by: Warfarin Sodium (Coumadin) 7.5 mg PO ONETIME ONE Stop: 04/12/20 14:01 Last Admin: 04/12/20 13:35 Dose: 7.5 mg Documented by: Warfarin Sodium (Coumadin) 5 mg PO ONETIME ONE Stop: 04/13/20 14:01 Last Admin: 04/13/20 14:08 Dose: 5 mg Documented by: - Exam Quality Assessment: Supplemental Oxygen General: Alert, Oriented Lungs: Clear to Auscultation, Normal Respiratory Effort Cardiovascular: Regular Rate, Regular Rhythm GI/Abdominal Exam: Normal Bowel Sounds, Soft, Non-Tender, Other (morbidly obese) Extremities: No Pedal Edema Sepsis Event Note - Evaluation Sepsis Screening Result: No Definite Risk - Focused Exam Vital Signs: Vital Signs Temp Pulse Resp BP Pulse Ox 04/13/20 20:00 97.8 F 101 H 16 119/64 100 - Problem List & Annotations (1) Acute blood loss anemia SNOMED Code(s): 385976654 Code(s): D62 - ACUTE POSTHEMORRHAGIC ANEMIA Status: Acute Current Visit: No (2) Acute pulmonary embolism SNOMED Code(s): 280613250 Code(s): I26.99 - OTHER PULMONARY EMBOLISM WITHOUT ACUTE COR PULMONALE Status: Acute Current Visit: No (3) Diabetes SNOMED Code(s): 06548238 Code(s): E11.9 - TYPE 2 DIABETES MELLITUS WITHOUT COMPLICATIONS Status: Acute Current Visit: No (4) GI bleed SNOMED Code(s): 72991594 Code(s): K92.2 - GASTROINTESTINAL HEMORRHAGE, UNSPECIFIED Status: Acute Current Visit: No (5) Morbid obesity SNOMED Code(s): 728946254 Code(s): E66.01 - MORBID (SEVERE) OBESITY DUE TO EXCESS CALORIES Status: Acute Current Visit: No (6) Weakness SNOMED Code(s): 12378641 Code(s): R53.1 - WEAKNESS Status: Acute Current Visit: No (7) Type 2 acute myocardial infarction SNOMED Code(s): 33590634 Code(s): I21.A1 - MYOCARDIAL INFARCTION TYPE 2 Status: Acute Current Visit: Yes - Problem List Review Problem List Initiated/Reviewed/Updated: Yes - My Orders Last 24 Hours: My Active Orders 04/14/20 06:10 INR,PT,PROTHROMBIN TIME [[facility]] DAILY 04/15/20 12:51 INR,PT,PROTHROMBIN TIME [[facility]] DAILY 04/16/20 12:51 INR,PT,PROTHROMBIN TIME [CO[facility]] DAILY 04/17/20 12:51 INR,PT,PROTHROMBIN TIME [COAG] DAILY - Plan Plan:: 65-year-old gentleman with prolonged hospital course from [facility], prior to acute care admission the patient has been living independently. The patient originally presented with cardiogenic shock, septic shock. the patient had PEA and received cardiac resuscitation. during the hospital course the patient was treated with broad-spectrum antibiotics for sepsis Noted to have acute GI bleed due to rectal ulcers associated with acute blood loss anemia acute renal failure, hyperkalemia, hypernatremia was managed The patient was noted to have severe weakness and dysphasia. transferred to swing bed for further physical and occupational therapy for weakness from [facility]. On 04/08 am was noted to have low oxygen sats, dx. With PE and transferred to acute care Acute hypoxemic respiratory failure Will supplement oxygen as needed - using high flow at night, NC during the day Acute PE remained stable without bleeding signs R. thigh dvt noted on US cont Lovenox twice a day started coumadin for target inr 2-3 inr is close to therapeutic will overlap one more day then plan to stop Lovenox Monitor for bleeding with recent lower gi bleed Acute non st [place] Likely type II due to PE Cont asa continue anticoagulation Weakness due to prolonged hospital course continue gentle physical and occupational therapy Continue dysphagia diet with thickened liquids - as he tolerates - we are unable to repeat video swallow study until he has significantly better exercise tolerance Acute blood loss anemia due to GI bleed Follow hemoglobin periodically acute metabolic encephalopathy appears resolved Diabetes with morbid obesity had low oral intake continue Lantus Humalog with meals Supplemental insulin and hypoglycemia treatment as needed Acute renal failure, hypo and hyperkalemia, hypernatremia lower extremity edema improved Continue diuretics Follow electrolytes and renal function in AM DVT prophylaxis with full dose anticoagulation
[2020-04-14] MEDS: Insulin Lispro 100 Units/ML 3 ML Vial SUBCUT SCH ×7 (08:34→22:06)
[2020-04-14] MEDS: Multivitamins, Therapeutic with Minerals Tab PO SCH (09:10)
[2020-04-14] MEDS: Enoxaparin 100 MG/1 ML Syringe SUBCUT SCH ×2 (09:10→22:01)
[2020-04-14] MEDS: Furosemide 20 MG Tab PO SCH (09:10)
[2020-04-14] MEDS: Aspirin 81 MG Tab.Chew PO SCH (09:10)
[2020-04-14] MEDS: Gabapentin 300 MG Cap PO SCH ×3 (09:10→22:00)
[2020-04-14] MEDS: Enoxaparin 40 MG/0.4 ML Syringe SUBCUT SCH ×2 (09:11→22:03)
[2020-04-14] MEDS: Lactulose Soln 10 GM/15 ML 30 ML UD Cup PO SCH ×2 (11:41→17:23)
[2020-04-14] MEDS ORDERED: Warfarin 2 MG Tab PO ONE (14:00)
[2020-04-14] MEDS: atorvaSTATin 20 MG Tab PO SCH (22:00)
[2020-04-14] MEDS: Insulin Glarg,Human.Rec.Analog 100 Unit/ML SUBCUT SCH (22:08)
[2020-04-15] MEDS: Omeprazole 20 MG Cap.CR PO SCH (06:18)
[2020-04-15 07:25] LABS: ANION GAP 6.9 mEq/L (7-13); CHLORIDE,CL 102 mmol/L (98-107); SODIUM,NA 141 mmol/L (136-145)
[2020-04-15] MEDS: Insulin Lispro 100 Units/ML 3 ML Vial SUBCUT SCH ×7 (09:35→22:24)
[2020-04-15] MEDS: Multivitamins, Therapeutic with Minerals Tab PO SCH (09:37)
[2020-04-15] MEDS: Enoxaparin 100 MG/1 ML Syringe SUBCUT SCH ×2 (09:38→22:26)
[2020-04-15] MEDS: Enoxaparin 40 MG/0.4 ML Syringe SUBCUT SCH ×2 (09:38→22:26)
[2020-04-15] MEDS: Furosemide 20 MG Tab PO SCH (09:38)
[2020-04-15] MEDS: Gabapentin 300 MG Cap PO SCH ×3 (09:38→22:25)
[2020-04-15] MEDS: Aspirin 81 MG Tab.Chew PO SCH (09:38)
[2020-04-15] MEDS ORDERED: Warfarin 2 MG Tab PO ONE (14:00)
--- NOTE | 2020-04-15 15:21 | PCM.PN ---
- General Info Date of Service: 04/15/20 Admission Dx/Problem (Free Text): Admission Diagnosis/Problem Admission Diagnosis/Problem pulmonary embolism Subjective Update: Pt is feeling stronger and has been out of bed to chair. He remained hemodynamically stable on oxygen supplement no associated chest pain no fever, no chills Functional Status: Reports: Pain Controlled, Tolerating Diet, Urinating - Review of Systems General: Reports: Weakness, Appetite (is acceptable). Denies: Fever, Chills HEENT: Denies: Headaches, Sinus Congestion, Sore Throat, Visual Changes Pulmonary: Reports: Shortness of Breath. Denies: Cough, Wheezing Cardiovascular: Denies: Chest Pain, Edema, Lightheadedness Gastrointestinal: Denies: Abdominal Pain, Diarrhea, Nausea, Vomiting Genitourinary: Denies: Dysuria, Burning, Flank Pain Musculoskeletal: Denies: Neck Pain, Shoulder Pain, Leg Pain, Joint Swelling Skin: Denies: Cyanosis, Jaundice, Bruising, Pruritis, Rash Neurological: Denies: Confusion, Numbness, Tremors Psychiatric: Denies: Confusion, Anxiety, Agitation - Patient Data Vitals - Most Recent: Last Vital Signs Temp 36.8 C 04/15/20 11:57 Pulse 98 04/15/20 11:57 Resp 18 04/15/20 11:57 BP 127/69 04/15/20 11:57 Pulse Ox 93 L 04/15/20 12:31 Weight - Most Recent: 130.635 kg I&O - Last 24 Hours: Intake & Output 04/15/20 04/15/20 04/15/20 06:59 14:59 22:59 Intake Total 400 Balance 400 Lab Results Last 24 Hours: Laboratory Results - last 24 hr 04/14/20 04/14/20 04/15/20 Range/Units 16:40 21:45 06:34 WBC (5.0-10.0) 10^3/uL RBC (4.6-6.2) 10^6/uL Hgb (14.0-18.0) g/dL Hct (40.0-54.0) % MCV (80-100) fL MCH (27.0-34.0) pg MCHC (33.0-35.0) g/dL Plt Count (150-450) 10^3/uL Neut % (Auto) (42.2-75.2) % Lymph % (Auto) (20.5-50.1) % [place] % (Auto) (2-8) % Eos % (Auto) (1.0-3.0) % Baso % (Auto) (0.0-1.0) % PT 21.7 H (9.0-12.0) SEC INR 2.3 H (0.9-1.2) Sodium (136-145) mmol/L Potassium (3.5-5.1) mmol/L Chloride (98-107) mmol/L Carbon Dioxide (21-32) mmol/L Anion Gap (7-13) mEq/L BUN (7-18) mg/dL Creatinine (0.70-1.30) mg/dL Est Cr Clr Drug Dosing mL/min Estimated GFR (MDRD) Glucose (74-99) mg/dL POC Glucose 173 H 173 H (70-105) mg/dl Calcium (8.5-10.1) mg/dL 04/15/20 04/15/20 04/15/20 Range/Units 06:34 06:34 08:26 WBC 4.7 L (5.0-10.0) 10^3/uL RBC 3.32 L (4.6-6.2) 10^6/uL Hgb 10.0 L (14.0-18.0) g/dL Hct 32.2 L (40.0-54.0) % MCV 97.0 (80-100) fL MCH 30.1 (27.0-34.0) pg MCHC 31.1 L (33.0-35.0) g/dL Plt Count 276 (150-450) 10^3/uL Neut % (Auto) 51.4 (42.2-75.2) % Lymph % (Auto) 34.9 (20.5-50.1) % [place] % (Auto) 7.4 (2-8) % Eos % (Auto) 5.9 H (1.0-3.0) % Baso % (Auto) 0.4 (0.0-1.0) % PT (9.0-12.0) SEC INR (0.9-1.2) Sodium 141 (136-145) mmol/L Potassium 3.9 (3.5-5.1) mmol/L Chloride 102 (98-107) mmol/L Carbon Dioxide 36 H (21-32) mmol/L Anion Gap 6.9 L (7-13) mEq/L BUN 7 (7-18) mg/dL Creatinine 0.95 (0.70-1.30) mg/dL Est Cr Clr Drug Dosing 76.49 mL/min Estimated GFR (MDRD) > 60 Glucose 152 H (74-99) mg/dL POC Glucose 151 H (70-105) mg/dl Calcium 8.1 L (8.5-10.1) mg/dL 04/15/20 Range/Units 11:46 WBC (5.0-10.0) 10^3/uL RBC (4.6-6.2) 10^6/uL Hgb (14.0-18.0) g/dL Hct (40.0-54.0) % MCV (80-100) fL MCH (27.0-34.0) pg MCHC (33.0-35.0) g/dL Plt Count (150-450) 10^3/uL Neut % (Auto) (42.2-75.2) % Lymph % (Auto) (20.5-50.1) % [place] % (Auto) (2-8) % Eos % (Auto) (1.0-3.0) % Baso % (Auto) (0.0-1.0) % PT (9.0-12.0) SEC INR (0.9-1.2) Sodium (136-145) mmol/L Potassium (3.5-5.1) mmol/L Chloride (98-107) mmol/L Carbon Dioxide (21-32) mmol/L Anion Gap (7-13) mEq/L BUN (7-18) mg/dL Creatinine (0.70-1.30) mg/dL Est Cr Clr Drug Dosing mL/min Estimated GFR (MDRD) Glucose (74-99) mg/dL POC Glucose 189 H (70-105) mg/dl Calcium (8.5-10.1) mg/dL Med Orders - Current: Current Medications Acetaminophen (Tylenol) 650 mg PO Q4H PRN PRN Reason: Pain (Mild 1-3)/fever Aspirin (Aspirin) 81 mg PO DAILY [facility] Last Admin: 04/15/20 09:38 Dose: 81 mg Documented by: Atorvastatin Calcium (Lipitor) 20 mg PO BEDTIME [facility] Last Admin: 04/14/20 22:00 Dose: 20 mg Documented by: Dextrose/Water (Dextrose 50% In Water) 25 ml IVPUSH Q1H PRN PRN Reason: blood sugar <70 Dextrose/Water (Dextrose 50% In Water) 50 ml IV ASDIRECTED PRN PRN Reason: Hypoglycemia Docusate Sodium (Colace) 100 mg PO BID PRN PRN Reason: Constipation Last Admin: 04/13/20 17:35 Dose: 100 mg Documented by: Enoxaparin Sodium (Lovenox) 100 mg SUBCUT Q12HR [facility] Last Admin: 04/15/20 09:38 Dose: 100 mg Documented by: Enoxaparin Sodium (Lovenox) 40 mg SUBCUT Q12HR [facility] Last Admin: 04/15/20 09:38 Dose: 40 mg Documented by: Furosemide (Lasix) 20 mg PO DAILY [facility] Last Admin: 04/15/20 09:38 Dose: 20 mg Documented by: Gabapentin (Neurontin) 300 mg PO TID [facility] Last Admin: 04/15/20 09:38 Dose: 300 mg Documented by: Glucagon (Glucagen) 1 mg IM ASDIRECTED PRN PRN Reason: Hypoglycemia Influenza Virus Vaccine (Pharmacy To Dose - Influenza Vaccine) 1 each IM DAILY [facility] Last Admin: 04/15/20 12:09 Dose: Not Given Documented by: Insulin Glargine (Lantus) 30 unit SUBCUT BEDTIME [facility] Last Admin: 04/14/20 22:08 Dose: 30 units Documented by: Insulin Human Lispro (Humalog) 15 unit SUBCUT TIDMEALS [facility] Last Admin: 04/15/20 12:21 Dose: 15 units Documented by: Insulin Human Lispro (Humalog) 0 unit SUBCUT QIDACANDBED [facility]; Protocol Last Admin: 04/15/20 12:24 Dose: 1 units Documented by: Multivitamins/Minerals (Vitamins And Minerals) 1 tab PO DAILY [facility] Last Admin: 04/15/20 09:37 Dose: 1 tab Documented by: Omeprazole (Omeprazole) 20 mg PO ACBRK [facility] Last Admin: 04/15/20 06:18 Dose: 20 mg Documented by: Ondansetron HCl (Zofran Odt) 4 mg PO Q4H PRN PRN Reason: nausea, able to take PO Oxycodone/Acetaminophen (Percocet 325-5 Mg) 1 tab PO Q6H PRN PRN Reason: Pain (moderate 4-6) Warfarin Sodium (Pharmacy To Dose - Warfarin) 1 dose .XX ASDIRECTED [facility] Zolpidem Tartrate (Ambien) 5 mg PO BEDTIME PRN PRN Reason: Sleep Last Admin: 04/11/20 21:07 Dose: 5 mg Documented by: Discontinued Medications Dextrose/Water (Dextrose 50% In Water) 50 ml IV ASDIRECTED PRN PRN Reason: Hypoglycemia Glucagon (Glucagen) 1 mg IM ASDIRECTED PRN PRN Reason: Hypoglycemia Heparin Sodium (Porcine) (Heparin Sodium) 5,000 units SUBCUT ONETIME ONE Stop: 04/08/20 13:57 Last Admin: 04/08/20 23:18 Dose: Not Given Documented by: Heparin Sodium (Porcine) (Heparin Sodium) 1,500 units IV ONETIME ONE Stop: 04/08/20 20:01 Last Admin: 04/08/20 20:01 Dose: 1,500 units Documented by: Heparin Sodium (Porcine) (Heparin Sodium) Confirm Administered Dose 5,000 units .ROUTE .STK-MED ONE Stop: 04/08/20 20:00 Last Admin: 04/08/20 20:40 Dose: Not Given Documented by: Heparin Sodium (Porcine) (Heparin Sodium) 1,500 units IVPUSH .BOLUS ONE Stop: 04/09/20 01:55 Last Admin: 04/09/20 02:08 Dose: 1,500 units Documented by: Heparin Sodium/Sodium Chloride (Heparin 25,000 Units In 1/2 Ns 500 Ml) 25,000 units in 500 mls @ 18.034 mls/hr IV TITRATE [facility]; Protocol Last Admin: 04/09/20 10:01 Dose: 10.9 units/kg/hr, 28.488 mls/hr Documented by: Insulin Glargine (Lantus) 60 unit SUBCUT BEDTIME [facility] Last Admin: 04/08/20 20:53 Dose: Not Given Documented by: Lactulose (Cephulac) 20 gm PO TID [facility] Stop: 04/14/20 14:01 Last Admin: 04/14/20 17:23 Dose: Not Given Documented by: Lisinopril (Prinivil) 5 mg PO DAILY [facility] Stop: 04/10/20 00:41 Last Admin: 04/09/20 08:31 Dose: 5 mg Documented by: Potassium Chloride (Klor-Con 10) 20 meq PO BIDMEALS [facility] Stop: 04/13/20 18:01 Last Admin: 04/13/20 17:35 Dose: 20 meq Documented by: Warfarin Sodium (Coumadin) 7.5 mg PO ONETIME ONE Stop: 04/11/20 14:01 Last Admin: 04/11/20 14:04 Dose: 7.5 mg Documented by: Warfarin Sodium (Coumadin) 7.5 mg PO ONETIME ONE Stop: 04/12/20 14:01 Last Admin: 04/12/20 13:35 Dose: 7.5 mg Documented by: Warfarin Sodium (Coumadin) 5 mg PO ONETIME ONE Stop: 04/13/20 14:01 Last Admin: 04/13/20 14:08 Dose: 5 mg Documented by: Warfarin Sodium (Coumadin) 2 mg PO ONETIME ONE Stop: 04/14/20 14:01 Last Admin: 04/14/20 13:30 Dose: 2 mg Documented by: Warfarin Sodium (Coumadin) 2 mg PO ONETIME ONE Stop: 04/15/20 14:01 - Exam Quality Assessment: Supplemental Oxygen, DVT Prophylaxis. No: Urine Catheter General: Alert, Oriented, Cooperative, No Acute Distress, Other (obese male) HEENT: Pupils Equal, Pupils Reactive, EOMI, Mucous Membr. Moist/[place] Neck: Supple, No JVD, No Thyromegaly Lungs: Clear to Auscultation, Normal Respiratory Effort, Decreased Breath Sounds Cardiovascular: Regular Rate, Regular Rhythm, Murmurs GI/Abdominal Exam: Normal Bowel Sounds, Soft, Non-Tender. No: Guarding, Rigid (Male) Exam: Deferred Back Exam: Normal Inspection Extremities: Normal Inspection, No Pedal Edema Skin: Warm, Dry, Intact Neurological: No New Focal Deficit Psy/Mental Status: Alert, Normal Affect, Normal Mood Sepsis Event Note - Evaluation Sepsis Screening Result: No Definite Risk - Focused Exam Vital Signs: Vital Signs Temp Pulse Resp BP BP Pulse Ox Pulse Ox 04/15/20 12:31 93 L 04/15/20 11:57 36.8 C 98 18 127/69 95 04/15/20 08:00 37.0 C 89 20 114/78 96 04/15/20 04:00 36.8 C 102 H 20 129/23 L 92 L - Problem List Review Problem List Initiated/Reviewed/Updated: Yes - Plan Plan:: 65-year-old gentleman with prolonged hospital course from [facility], prior to acute care admission the patient has been living independently. The patient originally presented with cardiogenic shock, septic shock. the patient had PEA and received cardiac resuscitation. during the hospital course the patient was treated with broad-spectrum antibiotics for sepsis , Noted to have acute GI bleed due to rectal ulcers associated with acute blood loss anemia acute renal failure, hyperkalemia, hypernatremia was managed with fluids. he was noted to have severe weakness and dysphasia. He was Transferred fro [facility] to to [facility] for further physical and occupational therapy for weakness. On 04/08 am was noted to have low oxygen sats, were dropping and CT chest showed h PE and transferred to acute care 1. Acute hypoxemic respiratory failure - Will continue supplement oxygen and wean off as tolerated 2. Acute PE: remained stable without bleeding signs R. thigh dvt noted on US cont Lovenox twice a day - started coumadin for target inr 2-3 and INR today 2.3 and will stop lovenox - INR is therapeutic -Monitor for bleeding with recent lower gi bleed 3. Acute non st [place] Likely type II due to PE Cont asa continue anticoagulation 4. Weakness due to prolonged hospital course continue gentle physical and occupational therapy Continue dysphagia diet with thickened liquids - as he tolerates - we are unable to repeat video swallow study until he has significantly better exercise tolerance 5. Acute blood loss anemia due to GI bleed Follow hemoglobin periodically 6. Diabetes with morbid obesity continue Lantus Humalog with meals Supplemental insulin and hypoglycemia treatment as needed 7. Acute renal failure: Improved Continue diuretics Follow electrolytes and renal function in AM DVT prophylaxis with full dose anticoagulation
[2020-04-15] MEDS: Insulin Glarg,Human.Rec.Analog 100 Unit/ML SUBCUT SCH (22:23)
[2020-04-15] MEDS: atorvaSTATin 20 MG Tab PO SCH (22:25)
[2020-04-16] MEDS: Omeprazole 20 MG Cap.CR PO SCH (05:54)
[2020-04-16] MEDS: Insulin Lispro 100 Units/ML 3 ML Vial SUBCUT SCH ×4 (08:56→12:28)
--- NOTE | 2020-04-16 09:21 | PCM.DCSUM1 ---
Discharge Summary - Hospital Course Free Text/Narrative:: Mr. Seals is a 65-year-old gentleman with prolonged hospital course from [facility], prior to acute care admission the patient has been living independently. The patient originally presented with cardiogenic shock, septic shock. the patient had PEA at [facility] and received cardiac resuscitation,and got Intubated and transferred to [facility] . during the hospital course the patient was treated with broad-spectrum antibiotics for sepsis , Noted to have acute GI bleed, was seen by GI had EGD and Colonoscopy and Noted to have "single large rectal ulcer with active bleeding from single-vessel s/p control of bleeding with1:10,000 Units Epinephrine injections and10 Fr Bicap cautery."Patient received total of 3 units of PRBCs and 1 unit of FFP. He also had acute renal failure, hyperkalemia, hypernatremia was managed with fluids. he was noted to have severe weakness and dysphasia. He was Transferred from [facility] to to [facility] [place] ( [facility]) for further physical and occupational therapy for weakness. On 04/08 am was noted to have hypoxic respiratory failure , CT chest showed B/L PE and Rt LE DVT, he was stated on Heparin drip and now on coumadin. He is again having rectal bleed starting this AM and he will be transferred to [facility] at [facility]. I talk to Dr. Mixon and he has accepted the patient. - Discharge Data Discharge Date: 04/16/20 Discharge Disposition: DC/Tfer to Acute Hospital 02 Condition: Good - Referral to Home Health Primary Care Physician: PCP None - Patient Summary/Data Consults: Consultations 04/08/20 13:56 Consult to Speech Language Pathology [[employer] MANAGER Evaluation and Treatment] [CONS] Routine OT Evaluation and Treatment [CONS] Routine PT Evaluation and Treatment [CONS] Routine - Patient Instructions Diet: Regular Diet as Tolerated Activity: As Tolerated Showering/Bathing: May Shower Notify Provider of: Fever Other/Special Instructions: He will be transferred to [facility], [place] - Discharge Plan Home Medications: Home Meds Aspirin 81 mg PO DAILY 04/05/20 [History] Furosemide [Lasix] 20 mg PO DAILY 04/05/20 [History] Insulin Aspart [NovoLOG] 15 units SQ TIDMEALS 04/05/20 [History] Insulin Detemir [Levemir] 60 units SQ BEDTIME 04/05/20 [History] Multivits,Th w-Fe,Other Min [Complete Multivitamin] 1 tab PO DAILY 04/05/20 [History] [place]-3 Fatty Acids/Fish Oil [Fish Oil 1,000 mg Capsule] 1,000 mg pe PO BID 04/05/20 [History] Omeprazole 20 mg PO DAILY 04/05/20 [History] atorvaSTATin [Lipitor] 20 mg PO BEDTIME 04/05/20 [History] lisinopriL [Lisinopril] 5 mg PO DAILY 04/05/20 [History] metFORMIN HCl [Metformin HCl] 1,000 mg PO BIDMEALS 04/05/20 [History] oxyCODONE HCl/Acetaminophen [Oxycodone-Acetaminophen 5-325] 1 tab PO Q6HR PRN 04/05/20 [History] oxyCODONE HCl/Acetaminophen [Oxycodone-Acetaminophen 5-325] 2 tab PO Q6HR PRN 04/05/20 [History] Oxygen Therapy Mode: Nasal Cannula - Discharge Summary/Plan Comment DC Time >30 min.: Yes Discharge Summary/Plan Comment: Impression and Plan 1. Acute hypoxemic respiratory failure: This is likely secondary to PE - Will continue supplement oxygen and wean off as tolerated 2. Acute PE: remained stable R. thigh dvt noted on US - started coumadin for target inr 2-3 and INR today 2.1 - INR is therapeutic -He is now having rectal bleeding , this is the pt with with recent history of lower GI bleed 3. Acute non st [place] Likely type II due to PE Cont asa continue anticoagulation 4. Weakness due to prolonged hospital course continue gentle physical and occupational therapy Continue dysphagia diet with thickened liquids - as he tolerates - we are unable to repeat video swallow study until he has significantly better exercise tolerance 5. Acute blood loss anemia due to GI bleed He now has acute onset of GI bleed and he will be transferred to [facility] for further care 6. Diabetes with morbid obesity continue Lantus Humalog with meals Supplemental insulin and hypoglycemia treatment as needed 7. Acute renal failure: Improved Continue diuretics Follow electrolytes and renal function in AM DVT prophylaxis : On full dose anticoagulation Disposition: He will be transferred to [facility] at [facility]. I talk to Dr. Mixon and she has accepted the patient. - General Info Date of Service: 04/16/20 Admission Dx/Problem (Free Text: Admission Diagnosis/Problem Admission Diagnosis/Problem pulmonary embolism Subjective Update: Pt is feeling stronger and He remained hemodynamically stable on oxygen supplement no associated chest pain no fever, no chills but has new rectal bleed noted this morning Functional Status: Reports: Pain Controlled, Tolerating Diet, Urinating - Review of Systems General: Reports: Weakness, Appetite (acceptable). Denies: Fever HEENT: Denies: Headaches, Sinus Congestion, Sore Throat, Visual Changes Pulmonary: Reports: Shortness of Breath. Denies: Cough, Sputum, Wheezing Cardiovascular: Denies: Chest Pain, Dyspnea on Exertion, Edema Gastrointestinal: Denies: Abdominal Pain, Diarrhea, Nausea, Vomiting Genitourinary: Denies: Dysuria, Frequency, Burning, Flank Pain Musculoskeletal: Denies: Neck Pain, Leg Pain, Joint Swelling Skin: Denies: Cyanosis, Jaundice Neurological: Denies: Confusion, Numbness, Tremors Psychiatric: Denies: Confusion, Anxiety - Patient Data Vitals - Most Recent: Last Vital Signs Temp 36.6 C 04/16/20 08:00 Pulse 104 H 04/16/20 08:00 Resp 18 04/16/20 08:00 BP 128/70 04/16/20 08:00 Pulse Ox 92 L 04/16/20 08:00 Weight - Most Recent: 130.635 kg I&O - Last 24 hours: Intake & Output 04/15/20 04/16/20 04/16/20 22:59 06:59 14:59 Output Total 770 Balance -770 Lab Results - Last 24 hrs: Laboratory Results - last 24 hr 04/15/20 04/15/20 04/15/20 Range/Units 08:26 11:46 16:42 Hgb (14.0-18.0) g/dL PT (9.0-12.0) SEC INR (0.9-1.2) POC Glucose 151 H 189 H 158 H (70-105) mg/dl SARS CoV-2 RNA Rapid HOOD (NEGATIVE) 04/15/20 04/16/20 04/16/20 Range/Units 20:51 05:25 05:25 Hgb 9.9 L (14.0-18.0) g/dL PT 20.1 H (9.0-12.0) SEC INR 2.1 H (0.9-1.2) POC Glucose 177 H (70-105) mg/dl SARS CoV-2 RNA Rapid HOOD (NEGATIVE) 04/16/20 04/16/20 Range/Units 07:44 08:50 Hgb (14.0-18.0) g/dL PT (9.0-12.0) SEC INR (0.9-1.2) POC Glucose 145 H (70-105) mg/dl SARS CoV-2 RNA Rapid HOOD Negative (NEGATIVE) Med Orders - Current: Current Medications Acetaminophen (Tylenol) 650 mg PO Q4H PRN PRN Reason: Pain (Mild 1-3)/fever Aspirin (Aspirin) 81 mg PO DAILY [facility] Last Admin: 04/15/20 09:38 Dose: 81 mg Documented by: Atorvastatin Calcium (Lipitor) 20 mg PO BEDTIME [facility] Last Admin: 04/15/20 22:25 Dose: 20 mg Documented by: Dextrose/Water (Dextrose 50% In Water) 25 ml IVPUSH Q1H PRN PRN Reason: blood sugar <70 Dextrose/Water (Dextrose 50% In Water) 50 ml IV ASDIRECTED PRN PRN Reason: Hypoglycemia Docusate Sodium (Colace) 100 mg PO BID PRN PRN Reason: Constipation Last Admin: 04/13/20 17:35 Dose: 100 mg Documented by: Enoxaparin Sodium (Lovenox) 100 mg SUBCUT Q12HR [facility] Last Admin: 04/15/20 22:26 Dose: 100 mg Documented by: Enoxaparin Sodium (Lovenox) 40 mg SUBCUT Q12HR [facility] Last Admin: 04/15/20 22:26 Dose: 40 mg Documented by: Furosemide (Lasix) 20 mg PO DAILY [facility] Last Admin: 04/15/20 09:38 Dose: 20 mg Documented by: Gabapentin (Neurontin) 300 mg PO TID [facility] Last Admin: 04/15/20 22:25 Dose: 300 mg Documented by: Glucagon (Glucagen) 1 mg IM ASDIRECTED PRN PRN Reason: Hypoglycemia Influenza Virus Vaccine (Pharmacy To Dose - Influenza Vaccine) 1 each IM DAILY [facility] Last Admin: 04/15/20 12:09 Dose: Not Given Documented by: Insulin Glargine (Lantus) 30 unit SUBCUT BEDTIME [facility] Last Admin: 04/15/20 22:23 Dose: 30 units Documented by: Insulin Human Lispro (Humalog) 15 unit SUBCUT TIDMEALS [facility] Last Admin: 04/16/20 08:56 Dose: Not Given Documented by: Insulin Human Lispro (Humalog) 0 unit SUBCUT QIDACANDBED [facility]; Protocol Last Admin: 04/16/20 08:57 Dose: Not Given Documented by: Multivitamins/Minerals (Vitamins And Minerals) 1 tab PO DAILY [facility] Last Admin: 04/15/20 09:37 Dose: 1 tab Documented by: Omeprazole (Omeprazole) 20 mg PO ACBRK [facility] Last Admin: 04/16/20 05:54 Dose: 20 mg Documented by: Ondansetron HCl (Zofran Odt) 4 mg PO Q4H PRN PRN Reason: nausea, able to take PO Oxycodone/Acetaminophen (Percocet 325-5 Mg) 1 tab PO Q6H PRN PRN Reason: Pain (moderate 4-6) Warfarin Sodium (Pharmacy To Dose - Warfarin) 1 dose .XX ASDIRECTED [facility] Warfarin Sodium (Coumadin) 2.5 mg PO ONETIME ONE Stop: 04/16/20 14:01 Zolpidem Tartrate (Ambien) 5 mg PO BEDTIME PRN PRN Reason: Sleep Last Admin: 04/11/20 21:07 Dose: 5 mg Documented by: Discontinued Medications Dextrose/Water (Dextrose 50% In Water) 50 ml IV ASDIRECTED PRN PRN Reason: Hypoglycemia Glucagon (Glucagen) 1 mg IM ASDIRECTED PRN PRN Reason: Hypoglycemia Heparin Sodium (Porcine) (Heparin Sodium) 5,000 units SUBCUT ONETIME ONE Stop: 04/08/20 13:57 Last Admin: 04/08/20 23:18 Dose: Not Given Documented by: Heparin Sodium (Porcine) (Heparin Sodium) 1,500 units IV ONETIME ONE Stop: 04/08/20 20:01 Last Admin: 04/08/20 20:01 Dose: 1,500 units Documented by: Heparin Sodium (Porcine) (Heparin Sodium) Confirm Administered Dose 5,000 units .ROUTE .STK-MED ONE Stop: 04/08/20 20:00 Last Admin: 04/08/20 20:40 Dose: Not Given Documented by: Heparin Sodium (Porcine) (Heparin Sodium) 1,500 units IVPUSH .BOLUS ONE Stop: 04/09/20 01:55 Last Admin: 04/09/20 02:08 Dose: 1,500 units Documented by: Heparin Sodium/Sodium Chloride (Heparin 25,000 Units In 1/2 Ns 500 Ml) 25,000 units in 500 mls @ 18.034 mls/hr IV TITRATE [facility]; Protocol Last Admin: 04/09/20 10:01 Dose: 10.9 units/kg/hr, 28.488 mls/hr Documented by: Insulin Glargine (Lantus) 60 unit SUBCUT BEDTIME [facility] Last Admin: 04/08/20 20:53 Dose: Not Given Documented by: Lactulose (Cephulac) 20 gm PO TID [facility] Stop: 04/14/20 14:01 Last Admin: 04/14/20 17:23 Dose: Not Given Documented by: Lisinopril (Prinivil) 5 mg PO DAILY [facility] Stop: 04/10/20 00:41 Last Admin: 04/09/20 08:31 Dose: 5 mg Documented by: Potassium Chloride (Klor-Con 10) 20 meq PO BIDMEALS [facility] Stop: 04/13/20 18:01 Last Admin: 04/13/20 17:35 Dose: 20 meq Documented by: Warfarin Sodium (Coumadin) 7.5 mg PO ONETIME ONE Stop: 04/11/20 14:01 Last Admin: 04/11/20 14:04 Dose: 7.5 mg Documented by: Warfarin Sodium (Coumadin) 7.5 mg PO ONETIME ONE Stop: 04/12/20 14:01 Last Admin: 04/12/20 13:35 Dose: 7.5 mg Documented by: Warfarin Sodium (Coumadin) 5 mg PO ONETIME ONE Stop: 04/13/20 14:01 Last Admin: 04/13/20 14:08 Dose: 5 mg Documented by: Warfarin Sodium (Coumadin) 2 mg PO ONETIME ONE Stop: 04/14/20 14:01 Last Admin: 04/14/20 13:30 Dose: 2 mg Documented by: Warfarin Sodium (Coumadin) 2 mg PO ONETIME ONE Stop: 04/15/20 14:01 Last Admin: 04/15/20 15:55 Dose: 2 mg Documented by: - Exam Quality Assessment: Reports: Supplemental Oxygen, Urine Catheter, DVT Prophylaxis General: Reports: Alert, Oriented, Cooperative, No Acute Distress HEENT: Reports: Pupils Equal, Pupils Reactive, EOMI, Mucous Membr. Moist/[place] Neck: Reports: Supple. Denies: Lymphadenopathy, Thyromegaly Lungs: Reports: Clear to Auscultation, Normal Respiratory Effort Cardiovascular: Reports: Regular Rate, Regular Rhythm, Murmurs GI/Abdominal Exam: Normal Bowel Sounds, Soft, Non-Tender. No: Rebound (Male) Exam: Deferred Rectal (Males) Exam: Deferred Back Exam: Reports: Normal Inspection Extremities: Normal Inspection, No Pedal Edema Skin: Reports: Warm, Dry, Intact Neurological: Reports: No New Focal Deficit Psy/Mental Status: Reports: Alert, Normal Affect, Normal Mood *Q Meaningful Use (DIS) - VTE *Q VTE Pharmacological Contraindications *Q: Risk of Bleeding
[2020-04-16] MEDS: Aspirin 81 MG Tab.Chew PO SCH (12:22)
[2020-04-16] MEDS: Furosemide 20 MG Tab PO SCH (12:23)
[2020-04-16] MEDS: Enoxaparin 100 MG/1 ML Syringe SUBCUT SCH (12:23)
[2020-04-16] MEDS: Gabapentin 300 MG Cap PO SCH (12:27)
[2020-04-16] MEDS: Multivitamins, Therapeutic with Minerals Tab PO SCH (12:27)
[2020-04-16] MEDS: Enoxaparin 40 MG/0.4 ML Syringe SUBCUT SCH (12:27)
[2020-04-16] MEDS ORDERED: Warfarin 2.5 MG Tab PO ONE (14:00)
== END 2020-04-16 10:45 | DRG 175 ==
LOC: DL.MS 13:54
PROVIDERS: ADMIT Internal Medicine; ATTEND Internal Medicine
DX: I26.99 Other pulmonary embolism without acute cor pulmonale (principal); J96.01 Acute respiratory failure with hypoxia; I21.A1 Myocardial infarction type 2; G93.41 Metabolic encephalopathy; D62 Acute posthemorrhagic anemia; K92.2 Gastrointestinal hemorrhage, unspecified; N17.9 Acute kidney failure, unspecified; E87.0 Hyperosmolality and hypernatremia; Z68.41 Body mass index [BMI] 40.0-44.9, adult; R53.1 Weakness; E87.6 Hypokalemia; E87.5 Hyperkalemia; E66.01 Morbid (severe) obesity due to excess calories; Z79.4 Long term (current) use of insulin; Z79.82 Long term (current) use of aspirin; Z79.899 Other long term (current) drug therapy; M19.90 Unspecified osteoarthritis, unspecified site; E11.42 Type 2 diabetes mellitus with diabetic polyneuropathy; Z86.74 Personal history of sudden cardiac arrest; Z98.41 Cataract extraction status, right eye; Z98.42 Cataract extraction status, left eye; Z98.890 Other specified postprocedural states; Z20.828 Contact with and (suspected) exposure to other viral communicable diseases
CPT/HCPCS: 36415; 51702; 80048; 82962; 85018; 85025; 85610; 85730; 93970; 94660; 94760; 97162-GP; 97167-GO; 97530-GO; 97530-GP; A9270-GY; J1644; J1650; J1815-GY; U0002